=== PATIENT | female | born 1990 | race Caucasian/White ===

== ENCOUNTER 2017-06-28 19:51 | Inpatient (IN) ==
[2017-06-28 20:19] LABS: Basophils % 0.2 %; Eosinophils # 0.1 K/mcL (0.0-0.6); Hematocrit 38.8 % (35.3-44.9); Hemoglobin 12.6 g/dL (11.5-15.4); Immature Granulocytes % 0.3 % (0-4); Lymphocytes # 1.7 K/mcL (0.6-4.6); Lymphocytes % 18.2 %; Mean Corpuscular HGB Conc 32.5 g/dL (31.6-35.5); Mean Corpuscular Hemoglobin 29.6 pg (28.0-33.3); Mean Corpuscular Volume 91.3 fL (83.0-100.0); Mean Platelet Volume 9.4 fL (9.4-12.4); Monocytes # 0.5 K/mcL (0.0-1.3); Monocytes % 5.3 %; Neutrophils # 7.1 K/mcL (1.6-8.9); Platelet Count 197 K/mcL (140-400); Red Blood Count 4.25 M/mcL (3.82-4.97); Red Cell Distribution Width 13.9 % (11.5-14.5)
--- NOTE | 2017-06-28 20:19 | Emergency Department Note ---
Disposition Clinical Impression: Suicidal ideation Depression Qualifiers: Depression Type: major depressive disorder Major depression recurrence: recurrent Active/Remission status: currently active Major depression episode severity: moderate Qualified Code(s): F33.1 - Major depressive disorder, recurrent, moderate Disposition: Admitted As Inpatient Condition: Good Referrals: NONE,PCP [Primary Care Provider] - Forms: ED Satisfaction Letter Time of Disposition: 22:19 General Adult HPI - General Chief complaint: ED Psychiatric Symptoms Stated complaint: suicidal ideations Time Seen by Provider: 06/28/17 19:54 Source: patient, EMS Limitations: no limitations Nursing Notes Reviewed: Yes Vital Signs Reviewed: Yes - History of Present Illness HPI Narrative: History of present illness: 27-year-old female by EMS for suicidal ideations and depression. Patient was just admitted to mental health facility in [place] last month she says for suicidal ideation so A things are different in that for the past day or 2 she has been hearing voices those voices commanding her to kill herself though thisplan. Patient denies any drugs or alcohol any L context of recent travel. There has been no inciting or precipitating event. Patient offers no other complaints at this time. Offers no painful complaints Pain Scale: 0 - Related Data Home Medications Medication Instructions Recorded Confirmed Levothyroxine [Synthroid] 125 mcg PO DAILY 10/29/15 05/26/17 Loratadine [Allergy Relief] 10 mg PO DAILY 05/26/17 05/26/17 Norelgestromin/Ethin.estradiol 1 patch TD QWEEK 05/26/17 05/26/17 [Xulane Patch] Pantoprazole Sodium 20 mg PO BID 05/26/17 05/26/17 Prazosin [Minipress] 1 mg PO HS 05/26/17 05/26/17 Sertraline [Zoloft] 100 mg PO DAILY 05/26/17 05/26/17 Allergies Allergy/AdvReac Type Severity Reaction Status Date / Time No Known Allergies Allergy Verified 05/26/17 16:29 All systems ED: reviewed and negative except as stated. Psychiatric: Reports: depression, suicidal thoughts Past Medical History - Past Medical History Attestation: Yes The following information was validated with the patient. 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 - Social History Smoking Status: Never smoker Smokeless Tobacco Status: No Alcohol use: Reports: none Drug use: Reports: none Physical Exam - General Limitations: no limitations General appearance: alert, in no apparent distress - Head Head exam: atraumatic - Eye Eye exam: Present: normal appearance - ENT ENT exam: normal exam, normal oropharynx - Neck Neck exam: Present: normal inspection, full ROM - Chest Chest inspection: Present: normal inspection, symmetric chest wall rise - Respiratory Respiratory exam: Present: normal lung sounds bilaterally - Cardiovascular Cardiovascular exam: Present: regular rate, normal rhythm - Abdominal Exam Abdominal exam: Present: soft, Non-Tender - Extremities Exam Extremities exam: Present: normal inspection, full ROM - Expanded Lower Extremity Exam Neurovascular/Tendon exam: Present: normal capillary refill Gait: observed and normal - Back Exam Back exam: Present: normal inspection, full ROM - Neurological Exam Neurological exam: Present: alert, oriented X3, CN II-XII intact - Psychiatric Psychiatric exam: Present: depressed, flat affect - Skin Skin exam: Present: warm, dry, intact Course - Reevaluation(s) Reevaluation #1: Physical examination is benign. Patient will be medically cleared and evaluated by mental health services. [place] slip has been completed and is on chart. Disposition pending Time: 20:18 Reevaluation #2: The workup and completion of laboratory studies within normal limits patient is medically cleared. Mental health services will be consult for disposition pending. Time: 20:48 Reevaluation #3: Patient was evaluated by mental health service incision was made to admit the patient for inpatient treatment. Admission orders placed. Patient going to the mental health unit. Time: 22:18 Vital Signs Temperature 98.3 F 06/28/17 20:00 Pulse Rate 164 06/28/17 20:00 Respiratory Rate 18 06/28/17 20:00 Blood Pressure 159/79 06/28/17 20:00 O2 Sat by Pulse Oximetry 95 06/28/17 20:00 Temperature 98.3 F 06/28/17 20:00 Pulse Rate 88 06/28/17 21:08 Respiratory Rate 18 06/28/17 20:00 Blood Pressure 159/79 06/28/17 20:00 O2 Sat by Pulse Oximetry 97 06/28/17 21:08 Oxygen Delivery Oxygen Delivery Room Air Medical Decision Making - Lab Data Result diagrams: 06/28/17 20:11 06/28/17 21:10 Lab Results 06/28/17 06/28/17 06/28/17 Range/Units 20:11 20:11 20:11 WBC 9.4 (4.3-11.1) K/mcL RBC 4.25 (3.82-4.97) M/mcL Hgb 12.6 (11.5-15.4) g/dL Hct 38.8 (35.3-44.9) % MCV 91.3 (83.0-100.0) fL MCH 29.6 (28.0-33.3) pg MCHC 32.5 (31.6-35.5) g/dL RDW 13.9 (11.5-14.5) % Plt Count 197 (140-400) K/mcL MPV 9.4 (9.4-12.4) fL Immature Gran % 0.3 (0-4) % Seg Neutrophils % 75.0 % Lymphocytes % 18.2 % Monocytes % 5.3 % Eosinophils % 1.0 % Basophils % 0.2 % Neutrophils # 7.1 (1.6-8.9) K/mcL Lymphocytes # 1.7 (0.6-4.6) K/mcL Monocytes # 0.5 (0.0-1.3) K/mcL Eosinophils # 0.1 (0.0-0.6) K/mcL Basophils # 0.0 (0.0-0.2) K/mcL Sodium Cancelled Potassium Cancelled Chloride Cancelled Carbon Dioxide Cancelled BUN Cancelled Creatinine Cancelled Est GFR ( Amer) Cancelled Est GFR (Non-Af Amer) Cancelled BUN/Creatinine Ratio Cancelled Glucose Cancelled Calculated Osmolality Cancelled Calcium Cancelled Urine Color (Yellow) Urine Clarity (Clear) Urine pH (5.0-8.0) pH Units Ur Specific Hallie (1.010-1.025) Urine Protein (Neg-Trace) mg/dL Urine Glucose (UA) (Normal) mg/dL Urine Ketones (Negative) mg/dL Urine Blood (Negative) Urine Nitrite (Negative) Urine Bilirubin (Negative) Urine Urobilinogen (Normal) mg/dL Ur Leukocyte Esterase (Negative) Urine Microscopic RBC (0-3) per hpf Urine Microscopic WBC (0-3) per hpf Ur Squamous Epith Cells (None-Few) per lpf Urine Bacteria (None-Few) per hpf Hyaline Casts (None-Few) per lpf Urine Test (Negative) Salicylates < 5.0 L (15.0-30.0) mg/dL Urine Opiates Screen (Tvtnad=801) ng/mL Acetaminophen < 1.0 L (10-30) mcg/mL Ur Barbiturates Screen (Uynlqy=449) ng/mL Ur Phencyclidine Scrn (Cutoff=25) ng/mL Ur Amphetamines Screen (Jyjnqe=8398) ng/mL U Benzodiazepines Scrn (Gcuaqm=085) ng/mL Urine Cocaine Screen (Cutoff= 300) ng/mL U Marijuana (THC) Screen (Cutoff = 50) ng/mL Ethyl Alcohol < 10 (0-10) mg/dL Specimen Rejected Hemolyzed 06/28/17 06/28/17 06/28/17 Range/Units 20:16 20:16 20:20 WBC (4.3-11.1) K/mcL RBC (3.82-4.97) M/mcL Hgb (11.5-15.4) g/dL Hct (35.3-44.9) % MCV (83.0-100.0) fL MCH (28.0-33.3) pg MCHC (31.6-35.5) g/dL RDW (11.5-14.5) % Plt Count (140-400) K/mcL MPV (9.4-12.4) fL Immature Gran % (0-4) % Seg Neutrophils % % Lymphocytes % % Monocytes % % Eosinophils % % Basophils % % Neutrophils # (1.6-8.9) K/mcL Lymphocytes # (0.6-4.6) K/mcL Monocytes # (0.0-1.3) K/mcL Eosinophils # (0.0-0.6) K/mcL Basophils # (0.0-0.2) K/mcL Sodium Potassium Chloride Carbon Dioxide BUN Creatinine Est GFR ( Amer) Est GFR (Non-Af Amer) BUN/Creatinine Ratio Glucose Calculated Osmolality Calcium Urine Color Yellow (Yellow) Urine Clarity Cloudy A (Clear) Urine pH 7.0 (5.0-8.0) pH Units Ur Specific Hallie 1.010 (1.010-1.025) Urine Protein Negative (Neg-Trace) mg/dL Urine Glucose (UA) Normal (Normal) mg/dL Urine Ketones Negative (Negative) mg/dL Urine Blood Negative (Negative) Urine Nitrite Negative (Negative) Urine Bilirubin Negative (Negative) Urine Urobilinogen Normal (Normal) mg/dL Ur Leukocyte Esterase Small H (Negative) Urine Microscopic RBC 0-3 (0-3) per hpf Urine Microscopic WBC 5-15 H (0-3) per hpf Ur Squamous Epith Cells Many H (None-Few) per lpf Urine Bacteria Moderate H (None-Few) per hpf Hyaline Casts None Seen (None-Few) per lpf Urine Test Negative (Negative) Salicylates (15.0-30.0) mg/dL Urine Opiates Screen Negative (Fxqrix=610) ng/mL Acetaminophen (10-30) mcg/mL Ur Barbiturates Screen Negative (Suopdf=408) ng/mL Ur Phencyclidine Scrn Negative (Cutoff=25) ng/mL Ur Amphetamines Screen Negative (Afuawt=6518) ng/mL U Benzodiazepines Scrn Negative (Gllzdg=327) ng/mL Urine Cocaine Screen Negative (Cutoff= 300) ng/mL U Marijuana (THC) Screen Negative (Cutoff = 50) ng/mL Ethyl Alcohol (0-10) mg/dL Specimen Rejected 06/28/17 Range/Units 21:10 WBC (4.3-11.1) K/mcL RBC (3.82-4.97) M/mcL Hgb (11.5-15.4) g/dL Hct (35.3-44.9) % MCV (83.0-100.0) fL MCH (28.0-33.3) pg MCHC (31.6-35.5) g/dL RDW (11.5-14.5) % Plt Count (140-400) K/mcL MPV (9.4-12.4) fL Immature Gran % (0-4) % Seg Neutrophils % % Lymphocytes % % Monocytes % % Eosinophils % % Basophils % % Neutrophils # (1.6-8.9) K/mcL Lymphocytes # (0.6-4.6) K/mcL Monocytes # (0.0-1.3) K/mcL Eosinophils # (0.0-0.6) K/mcL Basophils # (0.0-0.2) K/mcL Sodium 136 Potassium 4.0 Chloride 104 Carbon Dioxide 25 BUN 9 Creatinine 0.87 Est GFR ( Amer) > 60 Est GFR (Non-Af Amer) > 60 BUN/Creatinine Ratio 10 Glucose 137 H Calculated Osmolality 283 Calcium 9.1 Urine Color (Yellow) Urine Clarity (Clear) Urine pH (5.0-8.0) pH Units Ur Specific Hallie (1.010-1.025) Urine Protein (Neg-Trace) mg/dL Urine Glucose (UA) (Normal) mg/dL Urine Ketones (Negative) mg/dL Urine Blood (Negative) Urine Nitrite (Negative) Urine Bilirubin (Negative) Urine Urobilinogen (Normal) mg/dL Ur Leukocyte Esterase (Negative) Urine Microscopic RBC (0-3) per hpf Urine Microscopic WBC (0-3) per hpf Ur Squamous Epith Cells (None-Few) per lpf Urine Bacteria (None-Few) per hpf Hyaline Casts (None-Few) per lpf Urine Test (Negative) Salicylates (15.0-30.0) mg/dL Urine Opiates Screen (Vdoqot=731) ng/mL Acetaminophen (10-30) mcg/mL Ur Barbiturates Screen (Nqaeuj=204) ng/mL Ur Phencyclidine Scrn (Cutoff=25) ng/mL Ur Amphetamines Screen (Asvxjl=3390) ng/mL U Benzodiazepines Scrn (Femrqn=645) ng/mL Urine Cocaine Screen (Cutoff= 300) ng/mL U Marijuana (THC) Screen (Cutoff = 50) ng/mL Ethyl Alcohol (0-10) mg/dL Specimen Rejected
[2017-06-28 20:26] LABS: Bilirubin,Urine Negative (Negative); Blood,Urine Negative (Negative); Clarity,Urine Cloudy (Clear); Color,Urine Yellow (Yellow); Glucose,Urine (UA) Normal (Normal); Ketones,Urine Negative (Negative); Leukocyte Esterase,Urine Small (Negative); Nitrite,Urine Negative (Negative); Protein,Urine Negative (Neg-Trace); Urobilinogen,Urine Normal (Normal)
[2017-06-28 20:28] LABS: Bacteria,Urine Moderate per hpf (None-Few); Hyaline Casts,Urine None Seen per lpf (None-Few); Squamous Epithelial Cell,Urine Many per lpf (None-Few)
[2017-06-28 20:32] LABS: Amphetamine Screen,Urine Negative ng/mL (Cutoff=1000); Barbiturate Screen,Urine Negative ng/mL (Cutoff=200); Benzodiazepines Screen,Urine Negative ng/mL (Cutoff=200); Cannabinoid Screen,Urine Negative ng/mL (Cutoff = 50); Cocaine Screen,Urine Negative ng/mL (Cutoff= 300); Opiate Screen,Urine Negative ng/mL (Cutoff=300); Phencyclidine Screen,Urine Negative ng/mL (Cutoff=25)
[2017-06-28 20:38] LABS: Acetaminophen < 1.0 mcg/mL (10-30); Ethanol < 10 mg/dL (0-10); Salicylate < 5.0 mg/dL (15.0-30.0)
[2017-06-28 20:38] LABS: RBC,Urine 0-3 per hpf (0-3)
[2017-06-28 21:31] LABS: BUN/Creatinine Ratio 10 (6-26); Blood Urea Nitrogen 9 mg/dL (6-20); Calcium 9.1 mg/dL (8.6-10.3); Carbon Dioxide 25 mEq/L (23-29); Chloride 104 mEq/L (98-107); Glucose 137 mg/dL (70-105); Osmolality,Calculated 283 (280-300); Sodium 136 mEq/L (136-145); eGFR For African Americans > 60 (> 60); eGFR For Non-African Americans > 60 (> 60)
[2017-06-28] MEDS ORDERED: hydrOXYzine pamoate 25 MG CAPSULE PO PRN (22:31)
[2017-06-28] MEDS ORDERED: Mag Hydrox/Al Hydrox/Simeth 30 ML UDC PO PRN (22:31)
[2017-06-28] MEDS ORDERED: *HR* LORazepam 1 MG TABLET PO PRN (22:31)
[2017-06-28] MEDS ORDERED: Haloperidol Lactate 5 MG/ML VIAL IM PRN (22:31)
[2017-06-28] MEDS ORDERED: traZODone 50 MG TABLET PO PRN (22:31)
[2017-06-28] MEDS ORDERED: Acetaminophen 325 MG TABLET PO PRN (22:31)
[2017-06-28] MEDS ORDERED: *HR* LORazepam 2 MG/ML VIAL IM PRN (22:31)
[2017-06-28] MEDS ORDERED: MOM Conc 10 ML UD.LIQ PO PRN (22:31)
--- NOTE | 2017-06-29 10:43 | Psychiatry History & Physical ---
Date of Encounter: 06/29/17 Time of Encounter: 10:37 History of Present Illness Patient Stated Chief Complaint: suicidal ideation Medicare Admission Attestation: For traditional Medicare patients the provided hospital inpatient services are reasonable and necessary and in the case of services not specified as inpatient -only under 42 CFR 419.22 (n), that they are appropriately provided as inpatient services in accordance 42 CFR 412.3. For Critical Access Hospital the patient may reasonably be expected to be discharged or transferred to a hospital within 96 hours after admission to the Critical Access Hospital. Admitted From: Home Plans for Post Hospital Care: Home History of Present Illness: Ms. Chavarria is a 27 year old female who presented to the ER endorsing SI and AH. Lives with family and they told her she needed to go to the hospital and get her "head right." Client is cognitively very limited. Seems happy to be here. No outward signs of depression. She is linked with services. Already prescribed an antidepressant but staff are waiting to verify all of her meds and doses with her pharmacy. No evidence of psychosis on exam. No substance abuse issues. Physically client states she has HTN and AMOS. Obese. Limited self care. Presentation seems far more related to developmental delays than a primary mood or thought disorder. Home life is likely chaotic as client states there are multiple people in the house. Client is likely reacting to stress of living environment more than anything. Doubt client needs changes in medications. More likely needs a structured environment and groups to help address social skills and coping strategies. Past Med Surg Social Fam HX - Past Medical History Medical history: GERD, hypertension, thyroid disease, other - Past Psychiatric History Psychiatric history: Reports: depression, previous psychiatric hospitalization Family psychiatric history: Unknown Family History of Suicide: Unknown - Social History Smoking Status: Never smoker Smokeless Tobacco Status: No Alcohol use: none Drug use: none Medications & Allergies Levothyroxine [Synthroid] 125 mcg PO DAILY 10/29/15 [History] Loratadine [Allergy Relief] 10 mg PO DAILY 05/26/17 [History] Norelgestromin/Ethin.estradiol [Xulane Patch] 1 patch TD QWEEK 05/26/17 [History ] Pantoprazole Sodium 20 mg PO BID 05/26/17 [History] Prazosin [Minipress] 1 mg PO HS 05/26/17 [History] Sertraline [Zoloft] 150 mg PO DAILY 05/26/17 [History] hydrOXYzine HCl 25 mg PO TID PRN 06/28/17 [History] 3 Allergy/AdvReac Type Severity Reaction Status Date / Time No Known Allergies Allergy Verified 05/26/17 16:29 Review of Systems Constitutional: Denies: fever, chills, weakness, weight change Eyes: Denies: eye pain, vision change Ears, Nose, Throat: Denies: ear pain, throat pain, dental pain, hearing loss, congestion Cardiovascular: Denies: chest pain, palpitations, dyspnea on exertion Respiratory: Denies: cough, dyspnea, wheezes Gastrointestinal: Denies: abdominal pain, nausea, vomiting, diarrhea, constipation Genitourinary male: Denies: urgency, dysuria, frequency, genital lesions Genitourinary female: Denies: urgency, dysuria, frequency, abnormal menses, dyspareunia Musculoskeletal: Denies: joint swelling, joint pain Integumentary: Denies: rash, lesions, pruritus Neurological: Denies: headache, weakness, numbness, memory loss Endocrine: Denies: fatigue, heat or cold intolerance Hematologic/Lymphatic: Denies: easy bruising, lymphadenopathy Allergic/Immunologic: Denies: urticaria, itchy eyes Mental Status Exam Patient orientation: Yes Person, Yes Time, Yes Place Level of alertness: Alert Patient appearance: Unkempt, Disheveled Behavior: calm, cooperative Psychomotor activity: Normal Eye contact: Maintains Eye Contact Mood description: Depressed Affect description: incongruent with mood Speech pattern: Limited Speech volume: Normal Thought process: Linear Thought content: Yes Suicidal ideation, No Homicidal ideation, No Overt delusions Perceptual disturbances: Yes Auditory hallucinations Attention span: Capable of Focused Attention Memory description: Grossly Intact Patient reliability: Reliable Historian Intelligence estimate: Below Average Judgment: Limited Insight: Partial Exam - HEENT Head exam IM: Present: atraumatic Eye exam IM: Present: EOMI - Neurological Neurological exam IM: Present: alert, oriented X3 - Respiratory Respiratory exam IM: Present: CTAB - GI/Abdominal GI/Abdominal exam IM: Present: normal bowel sounds - Extremities Extremities exam IM: Present: full ROM - Skin Skin exam IM: Present: normal color Results - Vital Signs Vital signs: Temp Pulse Resp BP Pulse Ox 98.4 F 81 18 130/79 97 06/29/17 09:20 06/29/17 09:20 06/29/17 09:20 06/29/17 09:20 06/28/17 21:08 - Labs Labs: Laboratory Last Values WBC 9.4 K/mcL (4.3-11.1) 06/28/17 20:11 RBC 4.25 M/mcL (3.82-4.97) 06/28/17 20:11 Hgb 12.6 g/dL (11.5-15.4) 06/28/17 20:11 Hct 38.8 % (35.3-44.9) 06/28/17 20:11 MCV 91.3 fL (83.0-100.0) 06/28/17 20:11 MCH 29.6 pg (28.0-33.3) 06/28/17 20:11 MCHC 32.5 g/dL (31.6-35.5) 06/28/17 20:11 RDW 13.9 % (11.5-14.5) 06/28/17 20:11 Plt Count 197 K/mcL (140-400) 06/28/17 20:11 MPV 9.4 fL (9.4-12.4) 06/28/17 20:11 Immature Gran % 0.3 % (0-4) 06/28/17 20:11 Seg Neutrophils % 75.0 % 06/28/17 20:11 Lymphocytes % 18.2 % 06/28/17 20:11 Monocytes % 5.3 % 06/28/17 20:11 Eosinophils % 1.0 % 06/28/17 20:11 Basophils % 0.2 % 06/28/17 20:11 Neutrophils # 7.1 K/mcL (1.6-8.9) 06/28/17 20:11 Lymphocytes # 1.7 K/mcL (0.6-4.6) 06/28/17 20:11 Monocytes # 0.5 K/mcL (0.0-1.3) 06/28/17 20:11 Eosinophils # 0.1 K/mcL (0.0-0.6) 06/28/17 20:11 Basophils # 0.0 K/mcL (0.0-0.2) 06/28/17 20:11 Sodium 136 mEq/L (136-145) 06/28/17 21:10 Potassium 4.0 mEq/L (3.5-5.1) 06/28/17 21:10 Chloride 104 mEq/L (98-107) 06/28/17 21:10 Carbon Dioxide 25 mEq/L (23-29) 06/28/17 21:10 BUN 9 mg/dL (6-20) 06/28/17 21:10 Creatinine 0.87 mg/dL (0.60-1.20) 06/28/17 21:10 Est GFR ( Amer) > 60 (> 60) 06/28/17 21:10 Est GFR (Non-Af Amer) > 60 (> 60) 06/28/17 21:10 BUN/Creatinine Ratio 10 (6-26) 06/28/17 21:10 Glucose 137 mg/dL (70-105) H 06/28/17 21:10 Calculated Osmolality 283 (280-300) 06/28/17 21:10 Calcium 9.1 mg/dL (8.6-10.3) 06/28/17 21:10 Urine Color Yellow (Yellow) 06/28/17 20:20 Urine Clarity Cloudy (Clear) A 06/28/17 20:20 Urine pH 7.0 pH Units (5.0-8.0) 06/28/17 20:20 Ur Specific Happy 1.010 (1.010-1.025) 06/28/17 20:20 Urine Protein Negative mg/dL (Neg-Trace) 06/28/17 20:20 Urine Glucose (UA) Normal mg/dL (Normal) 06/28/17 20:20 Urine Ketones Negative mg/dL (Negative) 06/28/17 20:20 Urine Blood Negative (Negative) 06/28/17 20:20 Urine Nitrite Negative (Negative) 06/28/17 20:20 Urine Bilirubin Negative (Negative) 06/28/17 20:20 Urine Urobilinogen Normal mg/dL (Normal) 06/28/17 20:20 Ur Leukocyte Esterase Small (Negative) H 06/28/17 20:20 Urine Microscopic RBC 0-3 per hpf (0-3) 06/28/17 20:20 Urine Microscopic WBC 5-15 per hpf (0-3) H 06/28/17 20:20 Ur Squamous Epith Cells Many per lpf (None-Few) H 06/28/17 20:20 Urine Bacteria Moderate per hpf (None-Few) H 06/28/17 20:20 Hyaline Casts None Seen per lpf (None-Few) 06/28/17 20:20 Urine Test Negative (Negative) 06/28/17 20:16 Salicylates < 5.0 mg/dL (15.0-30.0) L 06/28/17 20:11 Urine Opiates Screen Negative ng/mL (Ygshmb=936) 06/28/17 20:16 Acetaminophen < 1.0 mcg/mL (10-30) L 06/28/17 20:11 Ur Barbiturates Screen Negative ng/mL (Mxsjux=115) 06/28/17 20:16 Ur Phencyclidine Scrn Negative ng/mL (Cutoff=25) 06/28/17 20:16 Ur Amphetamines Screen Negative ng/mL (Wgyqyr=2379) 06/28/17 20:16 U Benzodiazepines Scrn Negative ng/mL (Tbjavl=828) 06/28/17 20:16 Urine Cocaine Screen Negative ng/mL (Cutoff= 300) 06/28/17 20:16 U Marijuana (THC) Screen Negative ng/mL (Cutoff = 50) 06/28/17 20:16 Ethyl Alcohol < 10 mg/dL (0-10) 06/28/17 20:11 Specimen Rejected Hemolyzed 06/28/17 20:11 Assessment and Plan (1) Major depression, recurrent Current visit: Yes Status: Acute Plan: Admit inpatient for safety and stabilization, Close observation, Suicide Precautions per unit protocol, Encourage participation in unit milieu, Group Therapy, Monitor sleep, Monitor appetite Risks, benefits, side effects, alternatives discussed w/pt: Yes Patient agreeable to treatment: Yes Plans for Post Hospital Care: Home Estimated Length of Stay (Days): 4 Qualifiers: Active/Remission status: currently active Major depression episode severity : moderate Qualified Code(s): F33.1 - Major depressive disorder, recurrent, moderate (2) Depression Current visit: Yes Status: Acute Qualifiers: Depression Type: major depressive disorder Major depression recurrence: recurrent Active/Remission status: currently active Major depression episode severity: moderate Qualified Code(s): F33.1 - Major depressive disorder, recurrent, moderate
[2017-06-29] MEDS ORDERED: ETHINYL ESTRADIOL TP SCH (12:15)
[2017-06-29] MEDS ORDERED: NORELGESTROMIN TP SCH (12:15)
[2017-06-29] MEDS ORDERED: Ondansetron ODT 4 MG TAB.RAPDIS SL PRN (12:55)
[2017-06-29] MEDS: Loratadine 10 MG TABLET PO SCH (14:26)
[2017-06-29] MEDS: Cholecalciferol (D-3) 1,000 UNIT TABLET PO SCH (14:27)
[2017-06-29] MEDS: Nystatin Cream 15 GM TUBE TP SCH ×2 (14:53→23:12)
[2017-06-29] MEDS: hydrOXYzine pamoate 25 MG CAPSULE PO SCH ×2 (14:53→20:31)
[2017-06-29] MEDS ORDERED: Nystatin Cream 15 GM TUBE TP PRN (23:17)
[2017-06-30] MEDS ORDERED: Cholecalciferol (D-3) 1,000 UNIT TABLET PO SCH (09:00)
[2017-06-30] MEDS ORDERED: Loratadine 10 MG TABLET PO SCH (09:00)
[2017-06-30] MEDS: hydrOXYzine pamoate 25 MG CAPSULE PO SCH ×3 (09:08→21:20)
[2017-06-30] MEDS: Loratadine 10 MG TABLET PO SCH (09:09)
[2017-06-30] MEDS: Cholecalciferol (D-3) 1,000 UNIT TABLET PO SCH (09:09)
--- NOTE | 2017-06-30 15:03 | Psychiatry Progress Note ---
Date of Encounter: 06/30/17 Time of Encounter: 14:55 Subjective Interval history: Client entered room and immediately said "I'm not ready to go today. I just want to put that out there." Seems to be enjoying hospital stay. Family life is chaotic and client seems to be treating hospitalization as a respite from her home life. Seems happy to be here. Denying SI today. No evidence of a thought disorder although client does endorse AH on occasion. Social. Attending groups. May need a nudge to leave hospital. Staff spoke with family and they are ok with her returning home. They say client has a habit of acting out when she does not get her way. They are hoping this hospitalization fixes that behavior. Staff discussed with them how this is not a realistic expectation and encouraged ongoing therapy. Client stating she wants to remain in the hospital until Thursday. Discussed how she is doing well and that the intensity of inpatient services is not necessary for that long. Discussed goal of discharge so she can continue to work on coping skills and family dynamics. Review of Systems Constitutional: Denies: fever, chills, weakness, weight change Eyes: Denies: eye pain, vision change Ears, Nose, Throat: Denies: ear pain, throat pain, dental pain, hearing loss, congestion Cardiovascular: Denies: chest pain, palpitations, dyspnea on exertion Respiratory: Denies: cough, dyspnea, wheezes Gastrointestinal: Denies: abdominal pain, nausea, vomiting, diarrhea, constipation Musculoskeletal: Denies: joint swelling, joint pain Neurological: Denies: headache, weakness, numbness, memory loss Objective: Exam Patient orientation: Yes Person, Yes Time, Yes Place Level of alertness: Alert Patient appearance: Disheveled, Malodorous Behavior: calm, cooperative Psychomotor activity: Normal Eye contact: Maintains Eye Contact Mood description: Euthymic/stable Affect description: congruent with mood, full range Speech pattern: Normal rate, Normal rhythm, Normal tone Speech volume: Normal Thought process: Goal Oriented Thought content: No Suicidal ideation, No Homicidal ideation, No Overt delusions Perceptual disturbances: No Reacting to internal stimuli, Yes Auditory hallucinations Judgment: Fair Insight: Partial Results - Vital Signs Vital Signs: Temp Pulse Resp BP Pulse Ox 97.6 F 79 22 131/80 97 06/30/17 09:00 06/30/17 09:00 06/30/17 09:00 06/30/17 09:00 06/28/17 21:08 Assessment and Plan (1) Major depression, recurrent Current visit: Yes Status: Acute Plan: Continue hospitalization, Close observation, Suicide Precautions per unit protocol, Encourage participation in unit milieu, Group Therapy, Monitor sleep, Monitor appetite Risks, benefits, side effects, alternatives discussed w/pt: Yes Patient agreeable to treatment: Yes Qualifiers: Active/Remission status: currently active Major depression episode severity : moderate Qualified Code(s): F33.1 - Major depressive disorder, recurrent, moderate Consult Discharge Plan - Plan Referrals: [facility] [Outside] - 07/07/17 1:00 pm (The above appointment is with [facility] for outpatient mental health counseling services. You will also see Allison Miles for outpatient psychiatric assessment and medication management services on 07/28/2017 at 2:30 PM.)
[2017-07-01] MEDS ORDERED: MOM Conc 10 ML UD.LIQ PO PRN (00:54)
[2017-07-01] MEDS ORDERED: *HR* LORazepam 1 MG TABLET PO PRN (00:54)
[2017-07-01] MEDS ORDERED: Mag Hydrox/Al Hydrox/Simeth 30 ML UDC PO PRN (00:54)
[2017-07-01] MEDS ORDERED: hydrOXYzine pamoate 25 MG CAPSULE PO PRN (00:54)
[2017-07-01] MEDS ORDERED: Haloperidol Lactate 5 MG/ML VIAL IM PRN (00:54)
[2017-07-01] MEDS ORDERED: *HR* LORazepam 2 MG/ML VIAL IM PRN (00:54)
[2017-07-01] MEDS: Loratadine 10 MG TABLET PO SCH (08:19)
[2017-07-01] MEDS: hydrOXYzine pamoate 25 MG CAPSULE PO SCH (08:19)
[2017-07-01] MEDS: Cholecalciferol (D-3) 1,000 UNIT TABLET PO SCH (08:20)
[2017-07-01 09:13] VITALS: BP 129/76
--- NOTE | 2017-07-01 12:39 | Discharge Summary ---
Date of Encounter: 07/01/17 Time of Encounter: 12:36 Diagnosis - Discharge Diagnosis (1) Major depression, recurrent Status: Acute Qualifiers: Active/Remission status: currently active Major depression episode severity : moderate Qualified Code(s): F33.1 - Major depressive disorder, recurrent, moderate Medications - Discharge Medications Prescriptions: Cholecalciferol (D-3) [Vitamin D] 1,000 unit PO DAILY #14 tablet Levothyroxine [Synthroid] 125 mcg PO QAM 10/29/15 [History] Loratadine [Allergy Relief] 10 mg PO DAILY 05/26/17 [History] Norelgestromin/Ethin.estradiol [Xulane Patch] 1 patch TD QWEEK 05/26/17 [History ] Pantoprazole Sodium 20 mg PO BID 05/26/17 [History] Prazosin [Minipress] 1 mg PO HS 05/26/17 [History] Sertraline [Zoloft] 150 mg PO DAILY 05/26/17 [History] hydrOXYzine HCl [Hydroxyzine HCl] 25 mg PO TID PRN 06/28/17 [History] Ondansetron ODT [Zofran ODT] 4 mg PO TID PRN 06/29/17 [History] Cholecalciferol (D-3) [Vitamin D] 1,000 unit PO DAILY #14 tablet 07/01/17 [Rx] Nystatin Cream [Mycostatin Cream] 1 appl TP TID PRN tube 07/01/17 [Rx] 3 Allergy/AdvReac Type Severity Reaction Status Date / Time No Known Allergies Allergy Verified 05/26/17 16:29 Provider Date of admission: 06/28/17 22:26 Primary care physician: PCP NONE Consults: 06/29/17 00:28 Consult to Respiratory Therapy [CONS] Routine Reason for Consult: pt usually wears a bipap Call Completed: No Discharging clinician: Dafne Chadwick Assessment and Plan - Patient/Caregiver Discharge Instructions Activity: resume usual activities as tolerated Diet: regular diet - Follow up Plan Follow up with: [facility] [Outside] - 07/07/17 1:00 pm (The above appointment is with [facility] for outpatient mental health counseling services. You will also see Allison Miles for outpatient psychiatric assessment and medication management services on 07/28/2017 at 2:30 PM.) Functional capacity at discharge: independent ambulation Overall status at discharge: Stable Disposition: Home, Self-Care Hospital Course Hospital course: Ms. Chavarria is a 27 year old female who was admitted secondary to SI. Client had been having conflicts with her father and acting out at home. However, in the hospital she was happy, outgoing, and fully engaged with her peers and providers. Denied SI the day following admission and continues to deny SI. Knows she has to work on her relationships with family. Already linked with services. Has a therapy appointment on Thursday. Meds unchanged. Family denied having safety concerns and were willing to have client return home. - Time Spent with Patient Total time spent providing and/or coordinating discharge services: Quality - Multiple Antipsychotics Patient discharged on 2 or more antipsychotic medications: No Procedures - Procedures Procedures: Medication Management, Crisis Stabilization, Supportive Therapy, Group Therapy Mental Status Exam - Mental Status Exam Patient orientation: Yes Person, Yes Time, Yes Place Level of alertness: Alert Patient appearance: Disheveled, Malodorous Behavior: calm, cooperative Psychomotor activity: Normal Eye contact: Maintains Eye Contact Mood description: Euthymic/stable Affect description: congruent with mood, full range Speech pattern: Normal rate, Normal rhythm, Normal tone Speech Volume: Normal Thought process: Linear, Goal Oriented Thought Content: No Suicidal ideation, No Homicidal ideation, No Overt delusions Perceptual Disturbances: No Reacting to internal stimuli, Yes Auditory hallucinations, No Visual hallucinations Judgment: Fair Insight: Partial
[2017-07-01] MEDS ORDERED: BuPROPion SR (12 HR) 100 MG TABLET PO SCH (21:00)
[2017-07-01] MEDS ORDERED: Ziprasidone 20 MG CAPSULE PO SCH (21:00)
== END 2017-07-01 13:21 | disposition home or self-care (01) | DRG 751 ==
LOC: EMEROO 19:51 → 1ANU 22:26
PROVIDERS: ADMIT Psychiatry & Neurology Psychiatry; ATTEND Psychiatry & Neurology Psychiatry

== ENCOUNTER 2017-10-16 12:01 | Inpatient (IN) ==
--- NOTE | 2017-10-16 12:07 | Emergency Department Note ---
Disposition Clinical Impression: Suicidal ideation, Medical clearance for psychiatric admission Disposition: Admitted As Inpatient Condition: Undetermined General Adult HPI - General Chief complaint: ED Psychiatric Symptoms Stated complaint: SI/depression/hallucinations Time Seen by Provider: 10/16/17 12:03 - Related Data Home Medications Medication Instructions Recorded Confirmed Levothyroxine [Synthroid] 125 mcg PO QAM 10/29/15 10/16/17 Loratadine [Allergy Relief] 10 mg PO DAILY 05/26/17 10/16/17 Norelgestromin/Ethin.estradiol 1 patch TD QWEEK 05/26/17 10/16/17 [Xulane Patch] Pantoprazole Sodium 40 mg PO DAILY 05/26/17 10/16/17 Prazosin [Minipress] 1 mg PO HS 05/26/17 10/16/17 Sertraline [Zoloft] 150 mg PO DAILY 05/26/17 10/16/17 hydrOXYzine HCl [Hydroxyzine HCl] 25 mg PO TID PRN 06/28/17 10/16/17 Loxapine Succinate [Loxapine] 10 mg PO HS 10/16/17 10/16/17 Previous Rx's Medication Instructions Recorded Cholecalciferol (D-3) [Vitamin D] 1,000 unit PO DAILY #14 tablet 07/01/17 Allergies Allergy/AdvReac Type Severity Reaction Status Date / Time No Known Allergies Allergy Verified 10/16/17 12:08 Past Medical History - Past Medical History Medical history: Reports: GERD, hypertension, thyroid disease, other Surgical history: Reports: cholecystectomy Psychiatric history: Reports: depression, previous psychiatric hospitalization CRUSHER SETTER 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 CRUSHER SETTER history - Social History Smoking Status: Never smoker Smokeless Tobacco Status: No Alcohol use: Reports: none Drug use: Reports: none Course Vital Signs Temperature 98.3 F 10/16/17 12:09 Pulse Rate 97 10/16/17 12:09 Respiratory Rate 20 10/16/17 12:09 Blood Pressure 116/76 10/16/17 12:09 O2 Sat by Pulse Oximetry 96 10/16/17 12:09 Temperature 98.2 F 10/16/17 15:52 Pulse Rate 99 10/16/17 15:52 Respiratory Rate 28 10/16/17 15:52 Blood Pressure 135/80 10/16/17 15:52 O2 Sat by Pulse Oximetry 96 10/16/17 12:09 Oxygen Delivery Oxygen Delivery Room Air Medical Decision Making - Lab Data Result diagrams: 10/16/17 12:10 10/16/17 12:10 Lab Results 10/16/17 10/16/17 10/16/17 Range/Units 12:10 12:10 12:30 WBC 9.0 (4.3-11.1) K/mcL RBC 4.68 (3.82-4.97) M/mcL Hgb 13.3 (11.5-15.4) g/dL Hct 40.6 (35.3-44.9) % MCV 86.8 (83.0-100.0) fL MCH 28.4 (28.0-33.3) pg MCHC 32.8 (31.6-35.5) g/dL RDW 14.2 (11.5-14.5) % Plt Count 219 (140-400) K/mcL MPV 9.0 L (9.4-12.4) fL Immature Gran % 0.2 (0-4) % Seg Neutrophils % 72.5 % Lymphocytes % 19.8 % Monocytes % 6.5 % Eosinophils % 0.9 % Basophils % 0.1 % Neutrophils # 6.5 (1.6-8.9) K/mcL Lymphocytes # 1.8 (0.6-4.6) K/mcL Monocytes # 0.6 (0.0-1.3) K/mcL Eosinophils # 0.1 (0.0-0.6) K/mcL Basophils # 0.0 (0.0-0.2) K/mcL Sodium 135 L (136-145) mEq/L Potassium 4.0 (3.5-5.1) mEq/L Chloride 103 (98-107) mEq/L Carbon Dioxide 22 L (23-29) mEq/L BUN 10 (6-20) mg/dL Creatinine 0.73 (0.60-1.20) mg/dL Est GFR ( Amer) > 60 (> 60) Est GFR (Non-Af Amer) > 60 (> 60) BUN/Creatinine Ratio 14 (6-26) Glucose 88 (70-105) mg/dL Calculated Osmolality 278 L (280-300) Calcium 9.4 (8.6-10.3) mg/dL Urine Color Yellow (Yellow) Urine Clarity Cloudy A (Clear) Urine pH 6.5 (5.0-8.0) pH Units Ur Specific [place] 1.013 (1.010-1.025) Urine Protein Negative (Neg-Trace) mg/dL Urine Glucose (UA) Normal (Normal) mg/dL Urine Ketones Negative (Negative) mg/dL Urine Blood Negative (Negative) Urine Nitrite Negative (Negative) Urine Bilirubin Negative (Negative) Urine Urobilinogen Normal (Normal) mg/dL Ur Leukocyte Esterase Negative (Negative) Urine Microscopic RBC 0-3 (0-3) per hpf Urine Microscopic WBC 0-3 (0-3) per hpf Ur Squamous Epith Cells Many H (None-Few) per lpf Urine Bacteria Few (None-Few) per hpf Hyaline Casts None Seen (None-Few) per lpf Urine Test (Negative) Salicylates < 2.5 L (15.0-30.0) mg/dL Urine Opiates Screen (Kwmobo=824) ng/mL Acetaminophen < 10 L (10-20) mcg/mL Ur Barbiturates Screen (Uoooin=344) ng/mL Ur Phencyclidine Scrn (Cutoff=25) ng/mL Ur Amphetamines Screen (Eeyikj=4009) ng/mL U Benzodiazepines Scrn (Speceq=228) ng/mL Urine Cocaine Screen (Cutoff= 300) ng/mL U Marijuana (THC) Screen (Cutoff = 50) ng/mL Ethyl Alcohol < 10 (Less than 10) mg/dL 10/16/17 10/16/17 Range/Units 12:30 12:30 WBC (4.3-11.1) K/mcL RBC (3.82-4.97) M/mcL Hgb (11.5-15.4) g/dL Hct (35.3-44.9) % MCV (83.0-100.0) fL MCH (28.0-33.3) pg MCHC (31.6-35.5) g/dL RDW (11.5-14.5) % Plt Count (140-400) K/mcL MPV (9.4-12.4) fL Immature Gran % (0-4) % Seg Neutrophils % % Lymphocytes % % Monocytes % % Eosinophils % % Basophils % % Neutrophils # (1.6-8.9) K/mcL Lymphocytes # (0.6-4.6) K/mcL Monocytes # (0.0-1.3) K/mcL Eosinophils # (0.0-0.6) K/mcL Basophils # (0.0-0.2) K/mcL Sodium (136-145) mEq/L Potassium (3.5-5.1) mEq/L Chloride (98-107) mEq/L Carbon Dioxide (23-29) mEq/L BUN (6-20) mg/dL Creatinine (0.60-1.20) mg/dL Est GFR ( Amer) (> 60) Est GFR (Non-Af Amer) (> 60) BUN/Creatinine Ratio (6-26) Glucose (70-105) mg/dL Calculated Osmolality (280-300) Calcium (8.6-10.3) mg/dL Urine Color (Yellow) Urine Clarity (Clear) Urine pH (5.0-8.0) pH Units Ur Specific [place] (1.010-1.025) Urine Protein (Neg-Trace) mg/dL Urine Glucose (UA) (Normal) mg/dL Urine Ketones (Negative) mg/dL Urine Blood (Negative) Urine Nitrite (Negative) Urine Bilirubin (Negative) Urine Urobilinogen (Normal) mg/dL Ur Leukocyte Esterase (Negative) Urine Microscopic RBC (0-3) per hpf Urine Microscopic WBC (0-3) per hpf Ur Squamous Epith Cells (None-Few) per lpf Urine Bacteria (None-Few) per hpf Hyaline Casts (None-Few) per lpf Urine Test Negative (Negative) Salicylates (15.0-30.0) mg/dL Urine Opiates Screen Negative (Kuiiku=013) ng/mL Acetaminophen (10-20) mcg/mL Ur Barbiturates Screen Negative (Pvxmsz=266) ng/mL Ur Phencyclidine Scrn Negative (Cutoff=25) ng/mL Ur Amphetamines Screen Negative (Cgkzep=6463) ng/mL U Benzodiazepines Scrn Negative (Avpofp=001) ng/mL Urine Cocaine Screen Negative (Cutoff= 300) ng/mL U Marijuana (THC) Screen Negative (Cutoff = 50) ng/mL Ethyl Alcohol (Less than 10) mg/dL Attestation Statement - Attestation Attestation: I examined this patient and my medical decision-making was reviewed with the Resident Physician. I agree with the documented findings, disposition and treatment plan as described except to the extent set forth below. [id number] time provided Patient arrives by EMS with hallucinations. Previous history of psychiatric disease. She is pleasant and in no acute distress on exam. Medical clearance workup initiated
--- NOTE | 2017-10-16 12:07 | Emergency Department Note ---
Disposition Clinical Impression: Suicidal ideation, Medical clearance for psychiatric admission Disposition: Admitted As Inpatient Condition: Undetermined Referrals: Andrew Cool [Primary Care Provider] - Forms: ED Satisfaction Letter Time of Disposition: 15:25 Psych HPI - General Chief Complaint: ED Psychiatric Symptoms Stated Complaint: SI/depression/hallucinations Time Seen by Provider: 10/16/17 12:03 Source: patient, EMS Mode of arrival: EMS Limitations: no limitations Nursing Notes Reviewed: Yes Vital Signs Reviewed: Yes - History of Present Illness HPI Narrative: 27-year-old female with extensive history of psychiatric disease with previous admissions 2 arrives to the emergency department with complaint of suicidal ideation, visual hallucinations. The patient states that she has been trying to take her medications like normal. She denies any other injuries self injuries including cutting herself or taking any more medicines that she is supposed at this time. The patient does have a history of self injury. Patient denies any other complaints at this time. She is resting comfortably in the room. She denies any chest pain, difficulty in breathing, abdominal pain , dysuria, fevers, chills. - Related Data Home Medications Medication Instructions Recorded Confirmed Levothyroxine [Synthroid] 125 mcg PO QAM 10/29/15 06/29/17 Loratadine [Allergy Relief] 10 mg PO DAILY 05/26/17 06/29/17 Norelgestromin/Ethin.estradiol 1 patch TD QWEEK 05/26/17 06/29/17 [Xulane Patch] Pantoprazole Sodium 20 mg PO BID 05/26/17 06/29/17 Prazosin [Minipress] 1 mg PO HS 05/26/17 06/29/17 Sertraline [Zoloft] 150 mg PO DAILY 05/26/17 06/29/17 hydrOXYzine HCl [Hydroxyzine HCl] 25 mg PO TID PRN 06/28/17 06/29/17 Ondansetron ODT [Zofran ODT] 4 mg PO TID PRN 06/29/17 06/29/17 Previous Rx's Medication Instructions Recorded Cholecalciferol (D-3) [Vitamin D] 1,000 unit PO DAILY #14 tablet 07/01/17 Nystatin Cream [Mycostatin Cream] 1 appl TP TID PRN tube 07/01/17 Permethrin Cream Rinse [Nix] 60 ml TP ONCE #1 liquid 07/29/17 Allergies Allergy/AdvReac Type Severity Reaction Status Date / Time No Known Allergies Allergy Verified 10/16/17 12:08 All systems ED: reviewed and negative except as stated. Constitutional: Denies: fever, chills ENT ED: Denies: congestion Cardiovascular: Denies: chest pain Respiratory: Denies: dyspnea Gastrointestinal: Denies: abdominal pain Genitourinary: Denies: urgency, dysuria Musculoskeletal: Denies: back pain Integumentary: Denies: rash Neurological: Denies: headache Past Medical History - Past Medical History Attestation: Yes The following information was validated with the patient. 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 - Social History Smoking Status: Never smoker Smokeless Tobacco Status: No Alcohol use: Reports: none Drug use: Reports: none Physical Exam - General Limitations: no limitations General appearance: alert, in no apparent distress - Head Head exam: atraumatic, normocephalic, normal inspection - Eye Eye exam: Present: normal appearance, PERRL, EOMI - ENT ENT exam: normal exam, normal oropharynx, mucous membranes moist - Neck Neck exam: Present: normal inspection, full ROM, trachea midline - Chest Chest inspection: Present: normal inspection, symmetric chest wall rise - Respiratory Respiratory exam: Present: normal lung sounds bilaterally - Cardiovascular Cardiovascular exam: Present: regular rate, normal rhythm, normal heart sounds - Abdominal Exam Abdominal exam: Present: soft, Non-Tender. Absent: tenderness, distention, guarding, rebound, rigidity - Extremities Exam Extremities exam: Present: normal inspection, full ROM. Absent: tenderness, pedal edema - Neurological Exam Neurological exam: Present: alert, oriented X3, CN II-XII intact - Psychiatric Psychiatric exam: Present: depressed, anxious, suicidal ideation. Absent: homicidal ideation - Skin Skin exam: Present: warm, dry, intact, normal color Course - Reevaluation(s) Reevaluation #1: 1A called and notified at 1325. Will see patient. Time: 13:25 Vital Signs Temperature 98.3 F 10/16/17 12:09 Pulse Rate 97 10/16/17 12:09 Respiratory Rate 20 10/16/17 12:09 Blood Pressure 116/76 10/16/17 12:09 O2 Sat by Pulse Oximetry 96 10/16/17 12:09 Temperature 98.3 F 10/16/17 12:09 Pulse Rate 97 10/16/17 12:09 Respiratory Rate 20 10/16/17 12:09 Blood Pressure 116/76 10/16/17 12:09 O2 Sat by Pulse Oximetry 96 10/16/17 12:09 Oxygen Delivery Oxygen Delivery Room Air Psych - MDM Narrative Medical decision making narrative: Patient medically cleared. The patient will be admitted to 1 a. - Lab Data Result diagrams: 10/16/17 12:10 10/16/17 12:10 Lab Results 10/16/17 10/16/17 10/16/17 Range/Units 12:10 12:10 12:30 WBC 9.0 (4.3-11.1) K/mcL RBC 4.68 (3.82-4.97) M/mcL Hgb 13.3 (11.5-15.4) g/dL Hct 40.6 (35.3-44.9) % MCV 86.8 (83.0-100.0) fL MCH 28.4 (28.0-33.3) pg MCHC 32.8 (31.6-35.5) g/dL RDW 14.2 (11.5-14.5) % Plt Count 219 (140-400) K/mcL MPV 9.0 L (9.4-12.4) fL Immature Gran % 0.2 (0-4) % Seg Neutrophils % 72.5 % Lymphocytes % 19.8 % Monocytes % 6.5 % Eosinophils % 0.9 % Basophils % 0.1 % Neutrophils # 6.5 (1.6-8.9) K/mcL Lymphocytes # 1.8 (0.6-4.6) K/mcL Monocytes # 0.6 (0.0-1.3) K/mcL Eosinophils # 0.1 (0.0-0.6) K/mcL Basophils # 0.0 (0.0-0.2) K/mcL Sodium 135 L (136-145) mEq/L Potassium 4.0 (3.5-5.1) mEq/L Chloride 103 (98-107) mEq/L Carbon Dioxide 22 L (23-29) mEq/L BUN 10 (6-20) mg/dL Creatinine 0.73 (0.60-1.20) mg/dL Est GFR ( Amer) > 60 (> 60) Est GFR (Non-Af Amer) > 60 (> 60) BUN/Creatinine Ratio 14 (6-26) Glucose 88 (70-105) mg/dL Calculated Osmolality 278 L (280-300) Calcium 9.4 (8.6-10.3) mg/dL Urine Color Yellow (Yellow) Urine Clarity Cloudy A (Clear) Urine pH 6.5 (5.0-8.0) pH Units Ur Specific [place] 1.013 (1.010-1.025) Urine Protein Negative (Neg-Trace) mg/dL Urine Glucose (UA) Normal (Normal) mg/dL Urine Ketones Negative (Negative) mg/dL Urine Blood Negative (Negative) Urine Nitrite Negative (Negative) Urine Bilirubin Negative (Negative) Urine Urobilinogen Normal (Normal) mg/dL Ur Leukocyte Esterase Negative (Negative) Urine Microscopic RBC 0-3 (0-3) per hpf Urine Microscopic WBC 0-3 (0-3) per hpf Ur Squamous Epith Cells Many H (None-Few) per lpf Urine Bacteria Few (None-Few) per hpf Hyaline Casts None Seen (None-Few) per lpf Urine Test (Negative) Salicylates < 2.5 L (15.0-30.0) mg/dL Urine Opiates Screen (Ecmlkw=649) ng/mL Acetaminophen < 10 L (10-20) mcg/mL Ur Barbiturates Screen (Tneztp=266) ng/mL Ur Phencyclidine Scrn (Cutoff=25) ng/mL Ur Amphetamines Screen (Smmxnw=4468) ng/mL U Benzodiazepines Scrn (Sqpvqt=265) ng/mL Urine Cocaine Screen (Cutoff= 300) ng/mL U Marijuana (THC) Screen (Cutoff = 50) ng/mL Ethyl Alcohol < 10 (Less than 10) mg/dL 10/16/17 10/16/17 Range/Units 12:30 12:30 WBC (4.3-11.1) K/mcL RBC (3.82-4.97) M/mcL Hgb (11.5-15.4) g/dL Hct (35.3-44.9) % MCV (83.0-100.0) fL MCH (28.0-33.3) pg MCHC (31.6-35.5) g/dL RDW (11.5-14.5) % Plt Count (140-400) K/mcL MPV (9.4-12.4) fL Immature Gran % (0-4) % Seg Neutrophils % % Lymphocytes % % Monocytes % % Eosinophils % % Basophils % % Neutrophils # (1.6-8.9) K/mcL Lymphocytes # (0.6-4.6) K/mcL Monocytes # (0.0-1.3) K/mcL Eosinophils # (0.0-0.6) K/mcL Basophils # (0.0-0.2) K/mcL Sodium (136-145) mEq/L Potassium (3.5-5.1) mEq/L Chloride (98-107) mEq/L Carbon Dioxide (23-29) mEq/L BUN (6-20) mg/dL Creatinine (0.60-1.20) mg/dL Est GFR ( Amer) (> 60) Est GFR (Non-Af Amer) (> 60) BUN/Creatinine Ratio (6-26) Glucose (70-105) mg/dL Calculated Osmolality (280-300) Calcium (8.6-10.3) mg/dL Urine Color (Yellow) Urine Clarity (Clear) Urine pH (5.0-8.0) pH Units Ur Specific [place] (1.010-1.025) Urine Protein (Neg-Trace) mg/dL Urine Glucose (UA) (Normal) mg/dL Urine Ketones (Negative) mg/dL Urine Blood (Negative) Urine Nitrite (Negative) Urine Bilirubin (Negative) Urine Urobilinogen (Normal) mg/dL Ur Leukocyte Esterase (Negative) Urine Microscopic RBC (0-3) per hpf Urine Microscopic WBC (0-3) per hpf Ur Squamous Epith Cells (None-Few) per lpf Urine Bacteria (None-Few) per hpf Hyaline Casts (None-Few) per lpf Urine Test Negative (Negative) Salicylates (15.0-30.0) mg/dL Urine Opiates Screen Negative (Piemvb=518) ng/mL Acetaminophen (10-20) mcg/mL Ur Barbiturates Screen Negative (Ntlldf=400) ng/mL Ur Phencyclidine Scrn Negative (Cutoff=25) ng/mL Ur Amphetamines Screen Negative (Qjtqfy=6062) ng/mL U Benzodiazepines Scrn Negative (Jhxtmz=963) ng/mL Urine Cocaine Screen Negative (Cutoff= 300) ng/mL U Marijuana (THC) Screen Negative (Cutoff = 50) ng/mL Ethyl Alcohol (Less than 10) mg/dL Psychiatric Medical Clearance - Medical Clearance Checklist Medical History: Suicidal ideation (Acute) Depression (Acute) Major depression, recurrent (Acute) Abdominal pain (Inactive) Abdominal pain (Inactive) Acute anxiety (Inactive) Depression (Inactive) Laceration of right forearm (Inactive) Retention of urine, unspecified (Inactive) Scabies (Inactive) Suicidal ideation (Inactive) Superinfection (Inactive) Tinea corporis (Inactive) No Social History Section defined Current Vitals: Last Vital Signs Temp 98.3 F 10/16/17 12:09 Pulse 97 10/16/17 12:09 Resp 20 10/16/17 12:09 BP 116/76 10/16/17 12:09 Pulse Ox 96 10/16/17 12:09 Psychiatric Lab Panel: Drug Levels and Toxicity 10/16/17 10/16/17 12:10 12:30 Urine Opiates Screen Negative Acetaminophen < 10 L Ur Barbiturates Screen Negative Ur Phencyclidine Scrn Negative Ur Amphetamines Screen Negative U Benzodiazepines Scrn Negative Urine Cocaine Screen Negative U Marijuana (THC) Screen Negative Ethyl Alcohol < 10 Abnormal Labs: Abnormal lab results MPV 9.0 fL (9.4-12.4) L 10/16/17 12:10 Sodium 135 mEq/L (136-145) L 10/16/17 12:10 Carbon Dioxide 22 mEq/L (23-29) L 10/16/17 12:10 Calculated Osmolality 278 (280-300) L 10/16/17 12:10 Urine Clarity Cloudy (Clear) A 10/16/17 12:30 Ur Squamous Epith Cells Many per lpf (None-Few) H 10/16/17 12:30 Salicylates < 2.5 mg/dL (15.0-30.0) L 10/16/17 12:10 Acetaminophen < 10 mcg/mL (10-20) L 10/16/17 12:10 Statement of Medical Clearance: I have evaluated the patient, reviewed diagnostic information, and certify that the patient's medical condition is sufficiently stable that transfer to the psychiatric unit does not pose a significant risk of deterioration.
[2017-10-16 12:21] LABS: Basophils % 0.1 %; Eosinophils # 0.1 K/mcL (0.0-0.6); Eosinophils % 0.9 %; Hematocrit 40.6 % (35.3-44.9); Hemoglobin 13.3 g/dL (11.5-15.4); Immature Granulocytes % 0.2 % (0-4); Lymphocytes # 1.8 K/mcL (0.6-4.6); Lymphocytes % 19.8 %; Mean Corpuscular HGB Conc 32.8 g/dL (31.6-35.5); Mean Corpuscular Hemoglobin 28.4 pg (28.0-33.3); Mean Corpuscular Volume 86.8 fL (83.0-100.0); Monocytes # 0.6 K/mcL (0.0-1.3); Monocytes % 6.5 %; Neutrophils # 6.5 K/mcL (1.6-8.9); Platelet Count 219 K/mcL (140-400); Red Blood Count 4.68 M/mcL (3.82-4.97); Red Cell Distribution Width 14.2 % (11.5-14.5); Segmented Neutrophils % 72.5 %
[2017-10-16 12:51] LABS: Bilirubin,Urine Negative (Negative); Blood,Urine Negative (Negative); Clarity,Urine Cloudy (Clear); Color,Urine Yellow (Yellow); Glucose,Urine (UA) Normal (Normal); Ketones,Urine Negative (Negative); Leukocyte Esterase,Urine Negative (Negative); Nitrite,Urine Negative (Negative); PH,Urine 6.5 pH Units (5.0-8.0); Protein,Urine Negative (Neg-Trace); Specific Gravity,Urine 1.013 (1.010-1.025); Urobilinogen,Urine Normal (Normal)
[2017-10-16 12:53] LABS: BUN/Creatinine Ratio 14 (6-26); Blood Urea Nitrogen 10 mg/dL (6-20); Calcium 9.4 mg/dL (8.6-10.3); Carbon Dioxide 22 mEq/L (23-29); Chloride 103 mEq/L (98-107); Glucose 88 mg/dL (70-105); Osmolality,Calculated 278 (280-300); Sodium 135 mEq/L (136-145); eGFR For African Americans > 60 (> 60); eGFR For Non-African Americans > 60 (> 60)
[2017-10-16 12:56] LABS: Bacteria,Urine Few per hpf (None-Few); Hyaline Casts,Urine None Seen per lpf (None-Few); RBC,Urine 0-3 per hpf (0-3); Squamous Epithelial Cell,Urine Many per lpf (None-Few); WBC,Urine 0-3 per hpf (0-3)
[2017-10-16 13:13] LABS: Amphetamine Screen,Urine Negative ng/mL (Cutoff=1000); Barbiturate Screen,Urine Negative ng/mL (Cutoff=200); Benzodiazepines Screen,Urine Negative ng/mL (Cutoff=200); Cannabinoid Screen,Urine Negative ng/mL (Cutoff = 50); Cocaine Screen,Urine Negative ng/mL (Cutoff= 300); Opiate Screen,Urine Negative ng/mL (Cutoff=300); Phencyclidine Screen,Urine Negative ng/mL (Cutoff=25)
[2017-10-16 13:14] LABS: Acetaminophen < 10 mcg/mL (10-20)
[2017-10-16 13:22] LABS: Ethanol < 10 mg/dL (Less than 10); Salicylate < 2.5 mg/dL (15.0-30.0)
[2017-10-16] MEDS ORDERED: Haloperidol Lactate 5 MG/ML VIAL IM PRN (16:30)
[2017-10-16] MEDS ORDERED: *HR* LORazepam 1 MG TABLET PO PRN (16:30)
[2017-10-16] MEDS ORDERED: Ibuprofen 400 MG TABLET PO PRN (16:30)
[2017-10-16] MEDS ORDERED: Mag Hydrox/Al Hydrox/Simeth 30 ML UDC PO PRN (16:30)
[2017-10-16] MEDS ORDERED: MOM Conc 10 ML UD.LIQ PO PRN (16:30)
[2017-10-16] MEDS ORDERED: *HR* LORazepam 2 MG/ML VIAL IM PRN (16:30)
[2017-10-16] MEDS ORDERED: hydrOXYzine pamoate 25 MG CAPSULE PO PRN (16:33)
[2017-10-16] MEDS ORDERED: NORELGESTROMIN TP SCH (16:45)
[2017-10-16] MEDS ORDERED: ETHINYL ESTRADIOL TP SCH (16:45)
[2017-10-16] MEDS: (Loxapine Succinate [Loxapine] 10 MG) PO SCH (21:51)
[2017-10-17 07:38] LABS: Chol/HDL Ratio 4.9 (0-4.9)
[2017-10-17 07:51] LABS: Thyroid Stimulating Hormone 1.688 mcIU/mL (0.340-5.600)
[2017-10-17] MEDS: ARIPiprazole 2 MG TABLET PO SCH (08:44)
[2017-10-17] MEDS: Loratadine 10 MG TABLET PO SCH (08:44)
[2017-10-17] MEDS: Cholecalciferol (D-3) 1,000 UNIT TABLET PO SCH (08:45)
[2017-10-17 10:29] LABS: Estimated Average Glucose 128 mg/dl; Hemoglobin A1C 6.1 %
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
[2017-10-17] MEDS: (Loxapine Succinate [Loxapine] 10 MG) PO SCH (20:40)
[2017-10-18] MEDS: Cholecalciferol (D-3) 1,000 UNIT TABLET PO SCH (08:30)
[2017-10-18] MEDS: ARIPiprazole 2 MG TABLET PO SCH (08:30)
[2017-10-18] MEDS: Loratadine 10 MG TABLET PO SCH (08:30)
--- NOTE | 2017-10-18 10:40 | Psychiatry Progress Note ---
Date of Encounter: 10/18/17 Time of Encounter: 10:19 Subjective Interval history: Patient seen today, case d/w staff . laughing loudly and states i am fine today , i want ot be on 150 of zoloft as 200 gave me side effects. explained she is on 150 mg. she denies any side effects , states i slept fine yesterday , she is laughing loudly after every sentence. she denies seeing her sister or hearing her voice today , she does not have thoughts of cutting self. She is attending some groups, states laughing loudly at least i am up and not in bed like i always do. Continue monitoring her behaviours and continue stabilization. Labs reviewed hga1c 6.1, increase triglycerides, normal TSH . Review of Systems Psychiatric: Reports: depression, anxiety, suicidal ideation, auditory hallucinations, visual hallucinations, hopelessness Results - Vital Signs Vital Signs: Temp Pulse Resp BP Pulse Ox 98.1 F 90 18 129/87 96 10/18/17 07:55 10/18/17 07:55 10/18/17 07:55 10/18/17 07:55 10/16/17 12:09 - Labs Labs: Laboratory Results - last 24 hr 10/17/17 06:55 Est Mean Plasma Glucose 128 Hemoglobin A1c 6.1 H Assessment and Plan (1) Suicidal ideation Current visit: Yes Status: Acute Plan: Continue hospitalization, Close observation, Suicide Precautions per unit protocol, Encourage participation in unit milieu, Group Therapy, Monitor sleep, Monitor appetite, Family/Supportive other meeting Risks, benefits, side effects, alternatives discussed w/pt: Yes Patient agreeable to treatment: Yes (2) Psychosis Current visit: Yes Status: Acute Plan: Continue hospitalization, Close observation, Suicide Precautions per unit protocol, Encourage participation in unit milieu, Group Therapy, Monitor sleep, Monitor appetite, Family/Supportive other meeting Risks, benefits, side effects, alternatives discussed w/pt: Yes Patient agreeable to treatment: Yes Qualifiers: Psychosis type: unspecified psychosis type Qualified Code(s): F29 - Unspecified psychosis not due to a substance or known physiological condition (3) Depression Current visit: No Status: Acute Plan: Continue hospitalization, Close observation, Suicide Precautions per unit protocol, Encourage participation in unit milieu, Group Therapy, Monitor sleep, Monitor appetite, Family/Supportive other meeting Risks, benefits, side effects, alternatives discussed w/pt: Yes Patient agreeable to treatment: Yes Qualifiers: Depression Type: major depressive disorder Major depression recurrence: recurrent Active/Remission status: currently active Major depression episode severity: moderate Qualified Code(s): F33.1 - Major depressive disorder, recurrent, moderate Consult Discharge Plan - Plan Referrals: Andrew Cool [Primary Care Provider] - Psychiatry Exam - Constitutional Vitals: Temp Pulse Resp BP Pulse Ox 98.1 F 90 18 129/87 96 10/18/17 07:55 10/18/17 07:55 10/18/17 07:55 10/18/17 07:55 10/16/17 12:09 General appearance: obese - Musculoskeletal Gait: slow Station: relaxed Strength & Tone: normal for patient - Psychiatric Patient Orientation: Yes Person, Yes Time, Yes Place Level of alertness: Alert Behavior: cooperative, other Psychomotor activity: Normal Eye Contact: Maintains Eye Contact Mood Description: Euphoric Affect description: blunted Speech Volume: Loud Language & Vocabulary: consistent with education Thought Process: [place] Thought Content: Yes Paranoid delusion Perceptual Disturbances: No Auditory hallucinations, No Visual hallucinations Attention Span Ability: Unable to Sustain Attention Memory Description: Grossly Intact Patient Reliability: Questionable Historian Judgment: Limited Insight: Partial
[2017-10-18] MEDS: (Loxapine Succinate [Loxapine] 10 MG) PO SCH (21:00)
[2017-10-19] MEDS: Cholecalciferol (D-3) 1,000 UNIT TABLET PO SCH (08:54)
[2017-10-19] MEDS: Loratadine 10 MG TABLET PO SCH (08:54)
[2017-10-19] MEDS: ARIPiprazole 2 MG TABLET PO SCH (08:54)
[2017-10-19 09:33] VITALS: BP 128/82
--- NOTE | 2017-10-19 11:48 | Discharge Summary ---
Date of Encounter: 10/19/17 Time of Encounter: 09:20 Diagnosis - Discharge Diagnosis (1) Major depression, recurrent Status: Acute Qualifiers: Active/Remission status: currently active Major depression episode severity : moderate Qualified Code(s): F33.1 - Major depressive disorder, recurrent, moderate (2) Anxiety Status: Acute Medications - Discharge Medications Prescriptions: ARIPiprazole [Abilify] 2 mg PO DAILY #30 tablet Cholecalciferol (D-3) [Vitamin D] 1,000 unit PO DAILY #14 tablet Levothyroxine [Synthroid] 125 mcg PO QAM 10/29/15 [History] Loratadine [Allergy Relief] 10 mg PO DAILY 05/26/17 [History] Norelgestromin/Ethin.estradiol [Xulane Patch] 1 patch TD QWEEK 05/26/17 [History ] Pantoprazole Sodium 40 mg PO DAILY 05/26/17 [History] Prazosin [Minipress] 1 mg PO HS 05/26/17 [History] Sertraline [Zoloft] 150 mg PO DAILY 05/26/17 [History] hydrOXYzine HCl [Hydroxyzine HCl] 25 mg PO TID PRN 06/28/17 [History] Loxapine Succinate [Loxapine] 10 mg PO HS 10/16/17 [History] ARIPiprazole [Abilify] 2 mg PO DAILY #30 tablet 10/19/17 [Rx] Cholecalciferol (D-3) [Vitamin D] 1,000 unit PO DAILY #14 tablet 10/19/17 [Rx] 3 Allergy/AdvReac Type Severity Reaction Status Date / Time No Known Allergies Allergy Verified 10/16/17 12:08 Results Procedures and tests throughout hospitalization: Completed Lab Orders Category Date Time Status Hgb A1C Routine Lab 10/17/17 06:55 Completed Lipid Panel Routine Lab 10/17/17 06:55 Completed TSH [Thyroid Stimulating Hormone] Routine Lab 10/17/17 06:55 Completed Provider Date of admission: 10/16/17 15:31 Primary care physician: PCP NONE Consults: 10/16/17 16:39 Consult to Pastoral Services [CONS] Routine Comment: Discharging clinician: Josie Ngo Psychiatry Exam - Constitutional Vitals: Temp Pulse Resp BP Pulse Ox 97.8 F 80 20 128/82 96 10/19/17 09:00 10/19/17 09:00 10/19/17 09:00 10/19/17 09:00 10/16/17 12:09 General appearance: age & developmentally appropriate, obese - Musculoskeletal Gait: normal Station: relaxed Strength & Tone: normal for patient - Psychiatric Patient Orientation: Yes Person, Yes Time, Yes Place Level of alertness: Alert Behavior: calm, cooperative Psychomotor activity: Normal Eye Contact: Maintains Eye Contact Mood Description: Euthymic/stable Affect description: congruent with mood, full range Speech Volume: Normal Speech pattern: normal rate, normal rhythm, normal tone Language & Vocabulary: consistent with education Thought Process: Linear, Goal Oriented, [place] Thought Content: No Suicidal ideation, No Homicidal ideation, No Overt delusions Perceptual Disturbances: No Auditory hallucinations, No Visual hallucinations Attention Span Ability: Capable of Focused Attention Memory Description: Grossly Intact Patient Reliability: Reliable Historian Fund of knowledge: Yes below average, Yes aware of current events Intelligence Estimate: Below Average Judgment: Limited Insight: Partial Hospital Course Hospital course: Ms. Chavarria is a 27 year old female is a 27 -year-old female with a history of depression and anxiety. She presented to the hospital in distress is more depressed and suicidal. She also has a history of hallucinations. She was admitted to for psychiatric stabilization. Patient was incorporated into the therapeutic milieu and offer group and individual as well as as well as recreational therapies. She was also offered psychoeducational materials and supportive therapy. She was placed on suicide precautions and close observation per unit protocol. Patient was admitted and restarted on home medications. Abilify 2 mg by mouth daily was added to her current medications and she started to note some improvement in her mood. She was also given vitamin D. Patient states that she feels her new medications are helping. She denies thoughts of wanting to hurt herself now. She states she really got upset with her aunt and that is one of the reasons why she felt suicidal. She has attended some group and unit activities while on the unit. She is cooperative with peers and staff. She denies auditory or visual hallucinations and thought process is concrete but linear. Reality based thought content as well. She denies suicidal or homicidal ideation, intent, or plan. She is willing to continue her current medications on discharge. She will follow-up with her outpatient provider. She is discharged in stable condition. - Time Spent with Patient Total time spent providing and/or coordinating discharge services: Greater than 30 minutes Assessment and Plan - Patient/Caregiver Discharge Instructions Activity: resume usual activities as tolerated Diet: regular diet - Follow up Plan Follow up with: [facility] [Outside] - 10/28/17 3:00 pm (The above appointment is with Katy Dhillon for outpatient mental health counseling and case management servcies. You will also see Allison Miles for outpatient psychiatric assessment and medication management services on 11/03/2017 at 4:30 PM.) Functional capacity at discharge: independent ambulation Overall status at discharge: Stable Disposition: Home, Self-Care Quality - Multiple Antipsychotics Patient discharged on 2 or more antipsychotic medications: Yes - Justification Documentation of: Cross-taper in progress at time of discharge Procedures - Procedures Procedures: Medication Management, Crisis Stabilization, Supportive Therapy, Group Therapy, Psychoeducational Therapy
== END 2017-10-19 12:50 | disposition home or self-care (01) | DRG 751 ==
LOC: EMEROO 12:01 → 1ANU 15:31
PROVIDERS: ADMIT Psychiatry & Neurology Psychiatry; ATTEND Psychiatry & Neurology Psychiatry

== ENCOUNTER 2018-01-19 14:00 | Inpatient (IN) ==
[2018-01-19 14:53] LABS: Basophils % 0.1 %; Eosinophils # 0.1 K/mcL (0.0-0.6); Eosinophils % 0.6 %; Hematocrit 42.7 % (35.3-44.9); Hemoglobin 13.9 g/dL (11.5-15.4); Immature Granulocytes % 0.3 % (0-4); Lymphocytes # 1.5 K/mcL (0.6-4.6); Lymphocytes % 18.8 %; Mean Corpuscular HGB Conc 32.6 g/dL (31.6-35.5); Mean Corpuscular Hemoglobin 29.1 pg (28.0-33.3); Mean Corpuscular Volume 89.5 fL (83.0-100.0); Mean Platelet Volume 9.2 fL (9.4-12.4); Monocytes # 0.5 K/mcL (0.0-1.3); Monocytes % 5.8 %; Neutrophils # 5.9 K/mcL (1.6-8.9); Platelet Count 216 K/mcL (140-400); Red Blood Count 4.77 M/mcL (3.82-4.97); Red Cell Distribution Width 14.7 % (11.5-14.5); Segmented Neutrophils % 74.4 %
--- NOTE | 2018-01-19 14:56 | Emergency Department Note ---
Disposition Clinical Impression: Suicidal ideation Disposition: Admitted As Inpatient Condition: Good Referrals: NONE,PCP [Primary Care Provider] - Time of Disposition: 16:52 Psych HPI - General Chief Complaint: ED Psychiatric Symptoms Stated Complaint: SI Time Seen by Provider: 01/19/18 14:28 Source: patient Limitations: no limitations Nursing Notes Reviewed: Yes Vital Signs Reviewed: Yes - History of Present Illness HPI Narrative: 28 year old obese white female presents for "suicidal thoughts." Patient states she's thinking of cutting herself and lighting people on fire. Patient reports no plans to follow through on these thoughts. Patient denies anything happened to trigger these thoughts. Patient denies past suicidal attempts and access to guns. Denies visual and auditory hallucinations. States there has been no recent change in meds and that she's taking them all as directed. Patient reports not sleeping well due to nightmares. Medical history includes anxiety/ depression, PTSD, psychosis, hypothyroid, GERD, and hypertension. Denies any recent stress, tobacco, alcohol, and drugs. Denies Denies chest pain, shortness of breath, fever, chills, weight loss, swelling, nausea, vomiting, numbness, tingling, abdominal pain, visual changes, auditory changes, weakness, dizziness , urinary changes, bowel changes, headache. - Related Data Home Medications Medication Instructions Recorded Confirmed Levothyroxine [Synthroid] 125 mcg PO QAM 10/29/15 10/16/17 Loratadine [Allergy Relief] 10 mg PO DAILY 05/26/17 10/16/17 Norelgestromin/Ethin.estradiol 1 patch TD QWEEK 05/26/17 10/16/17 [Xulane Patch] Pantoprazole Sodium 40 mg PO DAILY 05/26/17 10/16/17 Prazosin [Minipress] 1 mg PO HS 05/26/17 10/16/17 Sertraline [Zoloft] 150 mg PO DAILY 05/26/17 10/16/17 hydrOXYzine HCl [Hydroxyzine HCl] 25 mg PO TID PRN 06/28/17 10/16/17 Loxapine Succinate [Loxapine] 10 mg PO HS 10/16/17 10/16/17 Previous Rx's Medication Instructions Recorded ARIPiprazole [Abilify] 2 mg PO DAILY #30 tablet 10/19/17 Cholecalciferol (D-3) [Vitamin D] 1,000 unit PO DAILY #14 tablet 10/19/17 Allergies Allergy/AdvReac Type Severity Reaction Status Date / Time No Known Allergies Allergy Verified 10/16/17 12:08 All systems ED: reviewed and negative except as stated. 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 Absent: tenderness, thyromegaly - Respiratory Respiratory exam: Present: normal lung sounds bilaterally - Cardiovascular Cardiovascular exam: Present: regular rate, normal rhythm, normal heart sounds - Abdominal Exam Abdominal exam: Present: soft, Non-Tender, normal bowel sounds. Absent: tenderness, distention, guarding, rebound, rigidity, bruit - Extremities Exam Extremities exam: Present: normal inspection, full ROM. Absent: tenderness, pedal edema - Neurological Exam Neurological exam: Present: alert, oriented X3, CN II-XII intact - Psychiatric Psychiatric exam: Present: normal affect, normal mood - Skin Skin exam: Present: warm, dry, intact, normal color, other (No cuts or lacerations. Multiple bug bites over arms and legs. Nurse found bedbugs on patient. ) Course Course Narrative: 28 year old female with history of anxiety/depression, PTSD, and psychosis presents for suicidal ideation. Patient denies any plans for suicide or homicide. Review of patient's medical records show multiple visits for suicidal ideation. Blood pressure and heart rate are elevated at 154/85 and 120, respectively. Patient is alert and oriented and of non-toxic appearance. Patient rests comfortably in bed and appears in good mood, is pleasant, and speaks openly. Will order psych workup. - Reevaluation(s) Reevaluation #1: Ethanol is 12. Otherwise, labwork is negative. Completed pink slip for thorough psych evaluation. Time: 16:32 Reevaluation #2: Psych came to evaluate patient. Patient to be admitted. Time: 16:51 Vital Signs Temperature 98.1 F 01/19/18 14:03 Pulse Rate 120 01/19/18 14:03 Respiratory Rate 20 01/19/18 14:03 Blood Pressure 154/85 01/19/18 14:03 O2 Sat by Pulse Oximetry 92 01/19/18 14:03 Temperature 98.1 F 01/19/18 14:03 Pulse Rate 120 01/19/18 14:03 Respiratory Rate 20 01/19/18 14:03 Blood Pressure 154/85 01/19/18 14:03 O2 Sat by Pulse Oximetry 92 01/19/18 14:03 Oxygen Delivery Oxygen Delivery Room Air Psych - Medical Records Medical records reviewed: Yes I reviewed the patient's medical records. - Lab Data Lab results reviewed: Yes I reviewed the patient's lab results. Lab Results 01/19/18 Range/Units 14:41 Ur Drug Screen Interp See Below Psychiatric Medical Clearance - Medical Clearance Checklist Medical History: No Social History Section defined Current Vitals: Last Vital Signs Temp 98.1 F 01/19/18 14:03 Pulse 120 01/19/18 14:03 Resp 20 01/19/18 14:03 BP 154/85 01/19/18 14:03 Pulse Ox 92 01/19/18 14:03 Statement of Medical Clearance: I have evaluated the patient, reviewed diagnostic information, and certify that the patient's medical condition is sufficiently stable that transfer to the psychiatric unit does not pose a significant risk of deterioration.
--- NOTE | 2018-01-19 15:01 | Emergency Department Note ---
Disposition Clinical Impression: Suicidal ideation Disposition: Still a Patient Referrals: NONE,PCP [Primary Care Provider] - Forms: ED Satisfaction Letter General Adult HPI - General Chief complaint: ED Psychiatric Symptoms Stated complaint: SI Time Seen by Provider: 01/19/18 14:28 Source: patient Limitations: no limitations - History of Present Illness Pain Scale: 0 - Related Data Home Medications Medication Instructions Recorded Confirmed Levothyroxine [Synthroid] 125 mcg PO QAM 10/29/15 10/16/17 Loratadine [Allergy Relief] 10 mg PO DAILY 05/26/17 10/16/17 Norelgestromin/Ethin.estradiol 1 patch TD QWEEK 05/26/17 10/16/17 [Xulane Patch] Pantoprazole Sodium 40 mg PO DAILY 05/26/17 10/16/17 Prazosin [Minipress] 1 mg PO HS 05/26/17 10/16/17 Sertraline [Zoloft] 150 mg PO DAILY 05/26/17 10/16/17 hydrOXYzine HCl [Hydroxyzine HCl] 25 mg PO TID PRN 06/28/17 10/16/17 Loxapine Succinate [Loxapine] 10 mg PO HS 10/16/17 10/16/17 Previous Rx's Medication Instructions Recorded ARIPiprazole [Abilify] 2 mg PO DAILY #30 tablet 10/19/17 Cholecalciferol (D-3) [Vitamin D] 1,000 unit PO DAILY #14 tablet 10/19/17 Allergies Allergy/AdvReac Type Severity Reaction Status Date / Time No Known Allergies Allergy Verified 10/16/17 12:08 Past Medical History - Past Medical History Medical history: Reports: GERD, hypertension, thyroid disease, other Surgical history: Reports: cholecystectomy Psychiatric history: Reports: depression, PTSD, prior suicide attempt, previous psychiatric hospitalization, other 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 I agree with the documented findings, disposition and treatment plan as described except to the extent set forth below. Patient seen with transitional resident Dr. Dior, Please see a copy of his note for details of the H&P, ED evaluation, management and disposition. I have independently evaluated the patient and confirmed appropriate portions of the history and physical exam. Briefly: 28-year-old female history of mental health disorder presents by EMS for suicidal ideations. Patient has plan and means. As per mental health issues. Patient is cooperative awake alert no signs of injury denies any intoxicants today. Patient will get screening labs and then mental health evaluation. Disposition pending. Time: 14:59 Vital Signs Temperature 98.1 F 01/19/18 14:03 Pulse Rate 120 01/19/18 14:03 Respiratory Rate 20 01/19/18 14:03 Blood Pressure 154/85 01/19/18 14:03 O2 Sat by Pulse Oximetry 92 01/19/18 14:03 Temperature 98.1 F 01/19/18 14:03 Pulse Rate 120 01/19/18 14:03 Respiratory Rate 20 01/19/18 14:03 Blood Pressure 154/85 01/19/18 14:03 O2 Sat by Pulse Oximetry 92 01/19/18 14:03 Oxygen Delivery Oxygen Delivery Room Air Medical Decision Making - Lab Data Result diagrams: 01/19/18 14:42 Lab Results 01/19/18 01/19/18 01/19/18 Range/Units 14:41 14:41 14:42 WBC 7.9 (4.3-11.1) K/mcL RBC 4.77 (3.82-4.97) M/mcL Hgb 13.9 (11.5-15.4) g/dL Hct 42.7 (35.3-44.9) % MCV 89.5 (83.0-100.0) fL MCH 29.1 (28.0-33.3) pg MCHC 32.6 (31.6-35.5) g/dL RDW 14.7 H (11.5-14.5) % Plt Count 216 (140-400) K/mcL MPV 9.2 L (9.4-12.4) fL Immature Gran % 0.3 (0-4) % Seg Neutrophils % 74.4 % Lymphocytes % 18.8 % Monocytes % 5.8 % Eosinophils % 0.6 % Basophils % 0.1 % Neutrophils # 5.9 (1.6-8.9) K/mcL Lymphocytes # 1.5 (0.6-4.6) K/mcL Monocytes # 0.5 (0.0-1.3) K/mcL Eosinophils # 0.1 (0.0-0.6) K/mcL Basophils # 0.0 (0.0-0.2) K/mcL Urine Test Negative (Negative) Ur Drug Screen Interp See Below
[2018-01-19 15:08] LABS: Amphetamine Screen,Urine Negative ng/mL (Cutoff=1000); Barbiturate Screen,Urine Negative ng/mL (Cutoff=200); Benzodiazepines Screen,Urine Negative ng/mL (Cutoff=200); Cannabinoid Screen,Urine Negative ng/mL (Cutoff = 50); Cocaine Screen,Urine Negative ng/mL (Cutoff= 300); Opiate Screen,Urine Negative ng/mL (Cutoff=300); Phencyclidine Screen,Urine Negative ng/mL (Cutoff=25)
[2018-01-19 15:20] LABS: Acetaminophen < 10 mcg/mL (10-20); BUN/Creatinine Ratio 10 (6-26); Blood Urea Nitrogen 8 mg/dL (6-20); Calcium 9.4 mg/dL (8.6-10.3); Carbon Dioxide 29 mEq/L (23-29); Chloride 101 mEq/L (98-107); Ethanol 12 mg/dL (Less than 10); Glucose 128 mg/dL (70-105); Osmolality,Calculated 284 (280-300); Potassium 4.4 mEq/L (3.5-5.1); Salicylate < 2.5 mg/dL (15.0-30.0); Sodium 137 mEq/L (136-145); eGFR For Non-African Americans > 60 (> 60)
[2018-01-19 16:04] LABS: Bilirubin,Urine Negative (Negative); Blood,Urine Negative (Negative); Color,Urine Yellow (Yellow); Ketones,Urine Negative (Negative); Leukocyte Esterase,Urine Negative (Negative); Nitrite,Urine Negative (Negative); Protein,Urine Negative (Neg-Trace); Specific Gravity,Urine 1.012 (1.010-1.025); Urobilinogen,Urine Normal (Normal)
[2018-01-19 16:05] LABS: Glucose,Urine (UA) Normal (Normal)
[2018-01-19 16:07] LABS: Clarity,Urine Clear (Clear)
[2018-01-19] MEDS ORDERED: hydrOXYzine pamoate 25 MG CAPSULE PO PRN (17:09)
[2018-01-19] MEDS ORDERED: Acetaminophen 325 MG TABLET PO PRN (17:10)
[2018-01-19] MEDS ORDERED: *HR* LORazepam 1 MG TABLET PO PRN (17:10)
[2018-01-19] MEDS ORDERED: Mag Hydrox/Al Hydrox/Simeth 30 ML UDC PO PRN (17:10)
[2018-01-19] MEDS ORDERED: *HR* LORazepam 2 MG/ML VIAL IM PRN (17:10)
[2018-01-19] MEDS ORDERED: Haloperidol Lactate 5 MG/ML VIAL IM PRN (17:10)
[2018-01-19] MEDS ORDERED: MOM Conc 10 ML UD.LIQ PO PRN (17:10)
[2018-01-19] MEDS ORDERED: NORELGESTROMIN TP SCH (17:15)
[2018-01-19] MEDS ORDERED: ETHINYL ESTRADIOL TP SCH (17:15)
[2018-01-19] MEDS: traZODone 50 MG TABLET PO PRN (20:37)
[2018-01-19] MEDS: (Loxapine Succinate [Loxapine] 10 MG) PO SCH (21:03)
[2018-01-20] MEDS: Cholecalciferol (D-3) 1,000 UNIT TABLET PO SCH (08:58)
[2018-01-20] MEDS: Loratadine 10 MG TABLET PO SCH (08:58)
[2018-01-20] MEDS ORDERED: ARIPiprazole 2 MG TABLET PO SCH (09:00)
[2018-01-20 09:22] LABS: Bacteria,Urine Few per hpf (None-Few); Hyaline Casts,Urine None Seen per lpf (None-Few); RBC,Urine 0-3 per hpf (0-3); Squamous Epithelial Cell,Urine Many per lpf (None-Few)
--- NOTE | 2018-01-20 10:31 | Psychiatry History & Physical ---
Date of Encounter: 01/20/18 Time of Encounter: 10:00 History of Present Illness Patient Stated Chief Complaint: i had nightmares and i am suicidal Medicare Admission Attestation: For traditional Medicare patients the provided hospital inpatient services are reasonable and necessary and in the case of services not specified as inpatient -only under 42 CFR 419.22 (n), that they are appropriately provided as inpatient services in accordance 42 CFR 412.3. For Critical Access Hospital the patient may reasonably be expected to be discharged or transferred to a hospital within 96 hours after admission to the Critical Access Hospital. Admitted From: Emergency Dept Plans for Post Hospital Care: Home History of Present Illness: Ms. Chavarria is a 28 year old female evaluated today , was admitted from ED. HPI Patient has with extensive history of psychiatric illness with previous admissions 3, last admission was in 10/30. , h/o developmental delay , depression , PTSD ,suicidal ideation and psychosis. arrives to the emergency department with complaint of suicidal ideation, homicidal ideation wants to hurt her BF and auditory hallucination telling her to kill herself , was thinking about cutting self. The patient states that she has been trying to take her medications like normal. She denies any other injuries self injuries including cutting herself or taking any more medicines that she is supposed at this time. The patient does have a history of self injury. At present having commanding hallucinations to hurt herself by cutting and hurt her boy friend. denies drugs/cig/alcohol. patient need inpatient for stabilization of psychosis and suicidal/homicidal ideation. Past Med Surg Social Fam HX - Past Medical History Medical history: GERD, hypertension, thyroid disease, other - Past Surgical History Surgical History: cholecystectomy - Social History Smoking Status: Never smoker Smokeless Tobacco Status: No Alcohol use: none Drug use: none Occupational status: unemployed Activity Level: Independent ambulation Recent Out of Country Travel Within the Last 8 Weeks: No Exposure or Possible Exposure to Illness During Travel: No - Family History Father Adopted: No Family Member Ethnicity: Non- Living Status: Still Living Hx Family Cardiac Disorders: No Hx Family Respiratory Disorders: Yes (sleep apnea) Hx Family Cancer: No Hx Family GI Disorders: Yes (shot in stomach at age 18) Hx Family Endocrine Disorder: Yes Hx Family Neuromuscular Disorders: No Hx Family Neurologic Disorders: No Hx Family HEENT Disorders: No Hx Family Autoimmune Disorders: No Medications & Allergies Levothyroxine [Synthroid] 125 mcg PO QAM 10/29/15 [History] Loratadine [Allergy Relief] 10 mg PO DAILY 05/26/17 [History] Norelgestromin/Ethin.estradiol [Xulane Patch] 1 patch TD QWEEK 05/26/17 [History ] Pantoprazole Sodium 40 mg PO DAILY 05/26/17 [History] Sertraline [Zoloft] 200 mg PO DAILY 05/26/17 [History] Loxapine Succinate [Loxapine] 10 mg PO HS 10/16/17 [History] ARIPiprazole [Abilify] 2 mg PO DAILY #30 tablet 10/19/17 [Rx] Cholecalciferol (D-3) [Vitamin D] 1,000 unit PO DAILY #14 tablet 10/19/17 [Rx] Prazosin HCl [Minipress] 2 mg PO BID 01/19/18 [History] hydrOXYzine pamoate [HydrOXYzine Pamoate] 50 mg PO QID PRN 01/19/18 [History] 3 Allergy/AdvReac Type Severity Reaction Status Date / Time No Known Allergies Allergy Verified 01/19/18 16:45 Review of Systems Constitutional: Denies: fever, chills, weakness, weight change Eyes: Denies: eye pain, vision change Ears, Nose, Throat: Denies: ear pain, throat pain, dental pain, hearing loss, congestion Cardiovascular: Denies: chest pain, palpitations, dyspnea on exertion Respiratory: Denies: cough, dyspnea, wheezes Gastrointestinal: Denies: abdominal pain, nausea, vomiting, diarrhea, constipation Genitourinary female: Denies: urgency, dysuria, frequency, abnormal menses, dyspareunia Musculoskeletal: Denies: joint swelling, joint pain Integumentary: Denies: rash, lesions, pruritus Neurological: Denies: headache, weakness, numbness, memory loss Psychiatric: Reports: depression, abnormal sleep pattern, suicidal ideation, homicidal ideation, auditory hallucinations, difficulty concentrating Endocrine: Denies: fatigue, heat or cold intolerance Hematologic/Lymphatic: Denies: easy bruising, lymphadenopathy Allergic/Immunologic: Denies: urticaria, itchy eyes Exam - HEENT Head exam IM: Present: atraumatic Eye exam IM: Present: EOMI, normal appearance, PERRL ENT exam IM: Present: normal exam - Neurological Neurological exam: Present: CN II-XII intact - Respiratory Respiratory exam IM: Present: CTAB - GI/Abdominal GI/Abdominal exam IM: Present: normal bowel sounds, soft. Absent: tenderness - Extremities Extremities exam IM: Present: full ROM - Skin Skin exam IM: Present: dry, warm - Constitutional Vitals: Temp Pulse Resp BP Pulse Ox 97.7 F 88 18 128/84 92 01/20/18 09:00 01/20/18 09:00 01/20/18 09:00 01/20/18 09:00 01/19/18 14:03 General appearance: age & developmentally appropriate, unkempt - Musculoskeletal Gait: slow Station: relaxed Strength & Tone: normal for patient - Psychiatric Patient Orientation: Yes Person, Yes Time, Yes Place Level of alertness: Alert Behavior: calm, cooperative Psychomotor activity: Slowed Eye Contact: Maintains Eye Contact Mood Description: Euthymic/stable Affect description: constricted Speech Volume: Soft/Quiet Speech pattern: slowed Language & Vocabulary: limited Thought Process: [place], Slowed Thinking Thought Content: Yes Suicidal ideation, Yes Homicidal ideation, Yes Preoccupation, Yes Paranoid delusion Perceptual Disturbances: Yes Auditory hallucinations Attention Span Ability: Unable to Sustain Attention Memory Description: Grossly Intact Patient Reliability: Reliable Historian Fund of knowledge: Yes below average Intelligence Estimate: Below Average Judgment: Poor Insight: Minimal Results - Labs Labs: Laboratory Last Values WBC 7.9 K/mcL (4.3-11.1) 01/19/18 14:42 RBC 4.77 M/mcL (3.82-4.97) 01/19/18 14:42 Hgb 13.9 g/dL (11.5-15.4) 01/19/18 14:42 Hct 42.7 % (35.3-44.9) 01/19/18 14:42 MCV 89.5 fL (83.0-100.0) 01/19/18 14:42 MCH 29.1 pg (28.0-33.3) 01/19/18 14:42 MCHC 32.6 g/dL (31.6-35.5) 01/19/18 14:42 RDW 14.7 % (11.5-14.5) H 01/19/18 14:42 Plt Count 216 K/mcL (140-400) 01/19/18 14:42 MPV 9.2 fL (9.4-12.4) L 01/19/18 14:42 Immature Gran % 0.3 % (0-4) 01/19/18 14:42 Seg Neutrophils % 74.4 % 01/19/18 14:42 Lymphocytes % 18.8 % 01/19/18 14:42 Monocytes % 5.8 % 01/19/18 14:42 Eosinophils % 0.6 % 01/19/18 14:42 Basophils % 0.1 % 01/19/18 14:42 Neutrophils # 5.9 K/mcL (1.6-8.9) 01/19/18 14:42 Lymphocytes # 1.5 K/mcL (0.6-4.6) 01/19/18 14:42 Monocytes # 0.5 K/mcL (0.0-1.3) 01/19/18 14:42 Eosinophils # 0.1 K/mcL (0.0-0.6) 01/19/18 14:42 Basophils # 0.0 K/mcL (0.0-0.2) 01/19/18 14:42 Sodium 137 mEq/L (136-145) 01/19/18 14:42 Potassium 4.4 mEq/L (3.5-5.1) 01/19/18 14:42 Chloride 101 mEq/L (98-107) 01/19/18 14:42 Carbon Dioxide 29 mEq/L (23-29) 01/19/18 14:42 BUN 8 mg/dL (6-20) 01/19/18 14:42 Creatinine 0.78 mg/dL (0.60-1.20) 01/19/18 14:42 Est GFR ( Amer) > 60 (> 60) 01/19/18 14:42 Est GFR (Non-Af Amer) > 60 (> 60) 01/19/18 14:42 BUN/Creatinine Ratio 10 (6-26) 01/19/18 14:42 Glucose 128 mg/dL (70-105) H 01/19/18 14:42 Calculated Osmolality 284 (280-300) 01/19/18 14:42 Calcium 9.4 mg/dL (8.6-10.3) 01/19/18 14:42 Urine Color Yellow (Yellow) 01/19/18 14:41 Urine Clarity Clear (Clear) 01/19/18 14:41 Urine pH 6.0 pH Units (5.0-8.0) 01/19/18 14:41 Ur Specific Crum 1.012 (1.010-1.025) 01/19/18 14:41 Urine Protein Negative mg/dL (Neg-Trace) 01/19/18 14:41 Urine Glucose (UA) Normal mg/dL (Normal) 01/19/18 14:41 Urine Clinitest TNP 01/19/18 14:41 Urine Ketones Negative mg/dL (Negative) 01/19/18 14:41 Urine Blood Negative (Negative) 01/19/18 14:41 Urine Nitrite Negative (Negative) 01/19/18 14:41 Urine Bilirubin Negative (Negative) 01/19/18 14:41 Urine Urobilinogen Normal mg/dL (Normal) 01/19/18 14:41 Ur Leukocyte Esterase Negative (Negative) 01/19/18 14:41 Urine Microscopic RBC 0-3 per hpf (0-3) 01/19/18 14:41 Urine Microscopic WBC 3-5 per hpf (0-3) H 01/19/18 14:41 Ur Squamous Epith Cells Many per lpf (None-Few) H 01/19/18 14:41 Urine Bacteria Few per hpf (None-Few) 01/19/18 14:41 Hyaline Casts None Seen per lpf (None-Few) 01/19/18 14:41 Urine Test Negative (Negative) 01/19/18 14:41 Salicylates < 2.5 mg/dL (15.0-30.0) L 01/19/18 14:42 Urine Opiates Screen Negative ng/mL (Lcjrjf=651) 01/19/18 14:41 Acetaminophen < 10 mcg/mL (10-20) L 01/19/18 14:42 Ur Barbiturates Screen Negative ng/mL (Gryjml=880) 01/19/18 14:41 Ur Phencyclidine Scrn Negative ng/mL (Cutoff=25) 01/19/18 14:41 Ur Amphetamines Screen Negative ng/mL (Qrgwtp=9811) 01/19/18 14:41 U Benzodiazepines Scrn Negative ng/mL (Szdgyv=679) 01/19/18 14:41 Urine Cocaine Screen Negative ng/mL (Cutoff= 300) 01/19/18 14:41 U Marijuana (THC) Screen Negative ng/mL (Cutoff = 50) 01/19/18 14:41 Ur Drug Screen Interp See Below 01/19/18 14:41 Ethyl Alcohol 12 mg/dL (Less than 10) H 01/19/18 14:42 Assessment and Plan (1) Homicidal ideation Current visit: Yes Status: Acute Plan: Admit inpatient for safety and stabilization, Close observation, Suicide Precautions per unit protocol, Encourage participation in unit milieu, Group Therapy, Monitor sleep, Monitor appetite, Family/Supportive other meeting Additional Plan: continue close observation. Risks, benefits, side effects, alternatives discussed w/pt: Yes Patient agreeable to treatment: Yes Plans for Post Hospital Care: at Home (2) Suicidal ideation Current visit: Yes Status: Acute Plan: Admit inpatient for safety and stabilization, Close observation, Suicide Precautions per unit protocol, Encourage participation in unit milieu, Group Therapy, Monitor sleep, Monitor appetite, Family/Supportive other meeting Risks, benefits, side effects, alternatives discussed w/pt: Yes Patient agreeable to treatment: Yes Plans for Post Hospital Care: at Home Estimated Length of Stay (Days): 5 (3) Major depression, recurrent Current visit: No Status: Acute Plan: Admit inpatient for safety and stabilization, Close observation, Suicide Precautions per unit protocol, Encourage participation in unit milieu, Group Therapy, Monitor sleep, Monitor appetite, Family/Supportive other meeting Risks, benefits, side effects, alternatives discussed w/pt: Yes Patient agreeable to treatment: Yes Plans for Post Hospital Care: at Home Qualifiers: Active/Remission status: currently active Major depression episode severity : severe Psychotic features: with psychotic features Qualified Code(s): F33.3 - Major depressive disorder, recurrent, severe with psychotic symptoms
[2018-01-20] MEDS: Topiramate 25 MG CAP.SPRINK PO SCH (11:24)
[2018-01-20] MEDS: ARIPiprazole 5 MG TABLET PO SCH (20:48)
[2018-01-20] MEDS: (Loxapine Succinate [Loxapine] 10 MG) PO SCH (22:56)
[2018-01-21] MEDS: Cholecalciferol (D-3) 1,000 UNIT TABLET PO SCH (08:43)
[2018-01-21] MEDS: Topiramate 25 MG CAP.SPRINK PO SCH (08:43)
[2018-01-21] MEDS: Loratadine 10 MG TABLET PO SCH (08:43)
--- NOTE | 2018-01-21 09:38 | Psychiatry Progress Note ---
Date of Encounter: 01/21/18 Time of Encounter: 09:20 Subjective Interval history: Patient seen today , case d/w treatment team , she remains same but her moods better as per team, has been compliant withher treatment. Patient is soft spoken and cooperative, morbidly obese female states i am good , slept better and no nightmares, she is not as depress and suicidal thoughts come and go, denies homicidal ideation , voices also come and go . she has minimal eye contact , denies side effects. AIMS 0 Review of Systems Psychiatric: Reports: depression, abnormal sleep pattern, suicidal ideation, homicidal ideation, auditory hallucinations, difficulty concentrating Results - Vital Signs Vital Signs: Temp Pulse Resp BP Pulse Ox 98.5 F 93 18 131/87 92 01/20/18 20:04 01/20/18 20:04 01/20/18 20:04 01/20/18 20:04 01/19/18 14:03 Assessment and Plan (1) Homicidal ideation Current visit: Yes Status: Acute Risks, benefits, side effects, alternatives discussed w/pt: Yes Patient agreeable to treatment: Yes (2) Suicidal ideation Current visit: Yes Status: Acute Risks, benefits, side effects, alternatives discussed w/pt: Yes Patient agreeable to treatment: Yes (3) Major depression, recurrent Current visit: No Status: Acute Risks, benefits, side effects, alternatives discussed w/pt: Yes Patient agreeable to treatment: Yes Qualifiers: Active/Remission status: currently active Major depression episode severity : severe Psychotic features: with psychotic features Qualified Code(s): F33.3 - Major depressive disorder, recurrent, severe with psychotic symptoms Consult Discharge Plan - Plan Referrals: [facility] [Outside] - 01/28/18 1:00 pm (The above appointment is with Katy Dhillon for outpatient mental health counseling services. You will also see Yamila Delgado for outpatient psychiatric assessment and medication management services on 03/11/2018 at 1:00 PM. The above appointments reflect first availability. You may contact the office regularly to check for cancellations that may like to be seen sooner.) Psychiatry Exam - Constitutional Vitals: Temp Pulse Resp BP Pulse Ox 98.5 F 93 18 131/87 92 01/20/18 20:04 01/20/18 20:04 01/20/18 20:04 01/20/18 20:04 01/19/18 14:03 General appearance: obese - Musculoskeletal Gait: slow Station: other Strength & Tone: normal for patient - Psychiatric Patient Orientation: Yes Person, Yes Time, Yes Place Level of alertness: Alert Behavior: cooperative, withdrawn Psychomotor activity: Slowed Eye Contact: Minimal Contact Mood Description: Depressed, Anxious Affect description: congruent with mood Speech Volume: Soft/Quiet Speech pattern: slowed Language & Vocabulary: consistent with education Thought Process: Slowed Thinking Thought Content: Yes Suicidal ideation Perceptual Disturbances: Yes Auditory hallucinations Attention Span Ability: Unable to Sustain Attention Memory Description: Grossly Intact Patient Reliability: Reliable Historian Fund of knowledge: Yes below average Intelligence Estimate: Below Average Judgment: Limited Insight: Partial
[2018-01-21] MEDS: (Loxapine Succinate [Loxapine] 10 MG) PO SCH (20:16)
[2018-01-21] MEDS: ARIPiprazole 5 MG TABLET PO SCH (20:16)
[2018-01-22] MEDS: Topiramate 25 MG CAP.SPRINK PO SCH (08:20)
[2018-01-22] MEDS: Loratadine 10 MG TABLET PO SCH (08:21)
[2018-01-22] MEDS: Cholecalciferol (D-3) 1,000 UNIT TABLET PO SCH (08:21)
--- NOTE | 2018-01-22 11:49 | Psychiatry Progress Note ---
Date of Encounter: 01/22/18 Time of Encounter: 11:25 Subjective Interval history: Patient seen today , chart reviewed , case d/w staff patient has shown improvement, she agreed today they she was not compliant with medications and therefore was depress and suicidal. she at present denies suicidal ideation but has blunt affect and depression improving as per her , she denies any psychosis at present, sleep is improving. denies side effects. will continue same rx plan ,. Review of Systems Psychiatric: Reports: depression, abnormal sleep pattern, auditory hallucinations, difficulty concentrating Results - Vital Signs Vital Signs: Temp Pulse Resp BP Pulse Ox 96.9 F L 87 20 130/85 92 01/22/18 09:00 01/22/18 09:00 01/22/18 09:00 01/22/18 09:00 01/19/18 14:03 Assessment and Plan (1) Homicidal ideation Current visit: Yes Status: Acute Risks, benefits, side effects, alternatives discussed w/pt: Yes Patient agreeable to treatment: Yes (2) Suicidal ideation Current visit: Yes Status: Acute Risks, benefits, side effects, alternatives discussed w/pt: Yes Patient agreeable to treatment: Yes (3) Major depression, recurrent Current visit: No Status: Acute Risks, benefits, side effects, alternatives discussed w/pt: Yes Patient agreeable to treatment: Yes Qualifiers: Active/Remission status: currently active Major depression episode severity : severe Psychotic features: with psychotic features Qualified Code(s): F33.3 - Major depressive disorder, recurrent, severe with psychotic symptoms Consult Discharge Plan - Plan Referrals: [facility] [Outside] - 01/28/18 1:00 pm (The above appointment is with Katy Dhillon for outpatient mental health counseling services. You will also see Yamila Delgado for outpatient psychiatric assessment and medication management services on 03/11/2018 at 1:00 PM. The above appointments reflect first availability. You may contact the office regularly to check for cancellations that may like to be seen sooner.) Psychiatry Exam - Constitutional Vitals: Temp Pulse Resp BP Pulse Ox 96.9 F L 87 20 130/85 92 01/22/18 09:00 01/22/18 09:00 01/22/18 09:00 01/22/18 09:00 01/19/18 14:03 General appearance: malodorous, obese - Musculoskeletal Gait: slow Station: other Strength & Tone: normal for patient - Psychiatric Patient Orientation: Yes Person, Yes Time, Yes Place Level of alertness: Alert Behavior: cooperative Psychomotor activity: Slowed Eye Contact: Maintains Eye Contact Mood Description: Depressed Affect description: blunted Speech Volume: Soft/Quiet Speech pattern: slowed Language & Vocabulary: limited Thought Process: Slowed Thinking Thought Content: Yes Preoccupation Perceptual Disturbances: No Auditory hallucinations, No Visual hallucinations Attention Span Ability: Capable of Focused Attention Memory Description: Grossly Intact Patient Reliability: Questionable Historian Fund of knowledge: Yes below average Intelligence Estimate: Below Average Judgment: Limited Insight: Partial
[2018-01-22] MEDS: ARIPiprazole 5 MG TABLET PO SCH (20:26)
[2018-01-22] MEDS: (Loxapine Succinate [Loxapine] 10 MG) PO SCH (21:52)
[2018-01-23] MEDS: Loratadine 10 MG TABLET PO SCH (09:04)
[2018-01-23] MEDS: Topiramate 25 MG CAP.SPRINK PO SCH (09:05)
[2018-01-23] MEDS: Cholecalciferol (D-3) 1,000 UNIT TABLET PO SCH (09:05)
--- NOTE | 2018-01-23 10:23 | Psychiatry Progress Note ---
Date of Encounter: 01/23/18 Time of Encounter: 10:00 Subjective Interval history: ID the patient is a 28-year-old white female. The patient is under an involuntary hold Chief complaints I want to go home, I do not hear any voices. History of present illness: The patient was admitted under a duty to protect provision of the revised code. [id number]. The patient had a plan to kill her boyfriend. His name is Alexis. He is an unidentified person. She says that he goes to the [employer] to preach. Her Emiliano the patient heard voices to tell her to set him on fire. The patient denies that she has access to [facility] matches explosives incendiary devices or gasoline. She denies that she has a plan to kill Alexis. She reports that she heard the voice of her uncle. This is the brother of her stepfather. She hears this as an evil voice and it was this evil voice that was telling her to do that and she says that the voice is now gone. The patient says that she has 3 dogs at home she would like to be with talks. The patient has reported that she is free of side effects. She feels that she can go home. However the [place] revised code requires aced face evaluation and a progress note to document that the patient no longer has suicidal ideation towards a known person. I explained this to the patient. She remains under involuntary hospitalization. I also discussed long-acting injectable forms of aripiprazole. She said that she would not consider this at this time and she did not like injections. However she is an obese female and may benefit from deltoid injection of one of the medications. Her family watches over her medicines. However this is the first hospitalization with an antipsychotic added to the antidepressants. Therefore the diagnosis of major depressive disorder recurrent severe with psychosis as being given. Review of Systems Psychiatric: Reports: depression, abnormal sleep pattern, suicidal ideation, homicidal ideation, auditory hallucinations, difficulty concentrating Results - Vital Signs Vital Signs: Temp Pulse Resp BP Pulse Ox 97.5 F L 91 20 138/86 92 01/23/18 09:00 01/23/18 09:00 01/23/18 09:00 01/23/18 09:00 01/19/18 14:03 Assessment and Plan (1) Severe recurrent major depressive disorder with psychotic symptoms Current visit: Yes Status: Acute Plan: Continue hospitalization, Close observation, Suicide Precautions per unit protocol, Encourage participation in unit milieu, Group Therapy, Family/ Supportive other meeting Risks, benefits, side effects, alternatives discussed w/pt: Yes Patient agreeable to treatment: Yes (2) Suicidal ideation Current visit: Yes Status: Acute Plan: Continue hospitalization, Group Therapy, Monitor sleep, Monitor appetite, Secure weapons, Family/Supportive other meeting Risks, benefits, side effects , alternatives discussed w/pt: Yes Patient agreeable to treatment: Yes (3) Major depression, recurrent Current visit: No Status: Acute Plan: Continue hospitalization, Close observation, Encourage participation in unit milieu, Secure weapons Risks, benefits, side effects, alternatives discussed w/pt: Yes Patient agreeable to treatment: Yes Qualifiers: Active/Remission status: currently active Major depression episode severity : severe Psychotic features: with psychotic features Qualified Code(s): F33.3 - Major depressive disorder, recurrent, severe with psychotic symptoms (4) Homicidal ideation Current visit: Yes Status: Acute Plan: Continue hospitalization, Close observation, Suicide Precautions per unit protocol, Encourage participation in unit milieu, Secure weapons, Family/ Supportive other meeting Risks, benefits, side effects, alternatives discussed w/pt: Yes Patient agreeable to treatment: Yes Consult Discharge Plan - Plan Referrals: [facility] [Outside] - 01/28/18 1:00 pm (The above appointment is with Katy Dhillon for outpatient mental health counseling services. You will also see Yamila Delgado for outpatient psychiatric assessment and medication management services on 03/11/2018 at 1:00 PM. The above appointments reflect first availability. You may contact the office regularly to check for cancellations that may like to be seen sooner.) Psychiatry Exam - Constitutional Vitals: Temp Pulse Resp BP Pulse Ox 97.5 F L 91 20 138/86 92 01/23/18 09:00 01/23/18 09:00 01/23/18 09:00 01/23/18 09:00 01/19/18 14:03 General appearance: unkempt, obese - Musculoskeletal Gait: slow Station: other Strength & Tone: normal for patient - Psychiatric Patient Orientation: Yes Person, Yes Time, Yes Place, Yes Circumstance Level of alertness: Alert Behavior: calm Psychomotor activity: Slowed Eye Contact: Maintains Eye Contact Mood Description: Other Affect description: incongruent with mood Speech Volume: Soft/Quiet Speech pattern: impoverished Language & Vocabulary: limited Thought Process: Intact, Logical Thought Content: Yes Suicidal ideation, Yes Homicidal ideation Perceptual Disturbances: Yes Auditory hallucinations Attention Span Ability: Capable of Sustained Attention Memory Description: Immediate Intact, Recent Impaired, Remote Impaired Patient Reliability: Not Reliable Historian Fund of knowledge: Yes below average Intelligence Estimate: Below Average Judgment: Limited Insight: Minimal
[2018-01-23] MEDS: ARIPiprazole 5 MG TABLET PO SCH (20:05)
[2018-01-24] MEDS: Topiramate 25 MG CAP.SPRINK PO SCH (09:28)
[2018-01-24] MEDS: Loratadine 10 MG TABLET PO SCH (09:28)
[2018-01-24] MEDS: Cholecalciferol (D-3) 1,000 UNIT TABLET PO SCH (09:28)
--- NOTE | 2018-01-24 11:07 | Psychiatry Progress Note ---
Date of Encounter: 01/24/18 Time of Encounter: 11:00 Subjective Interval history: ID: 28 you W female. CC: I like to do groups. HPI: patient to her mother yesterday. She spoke to Alexis on the phone. She says that she has not heard the voice of her uncle. She last heard the voice of her uncle on January 19. She reports that she has not heard it since then. She says "I not kill him anymore". No visitors expected today. No side effects to medications. Review of Systems Psychiatric: Reports: depression, abnormal sleep pattern, suicidal ideation, difficulty concentrating Results - Vital Signs Vital Signs: Temp Pulse Resp BP Pulse Ox 97.0 F L 93 16 128/79 92 01/24/18 09:00 01/24/18 09:00 01/24/18 09:00 01/24/18 09:00 01/19/18 14:03 Assessment and Plan (1) Severe recurrent major depressive disorder with psychotic symptoms Current visit: Yes Status: Acute Plan: Close observation, Suicide Precautions per unit protocol, Encourage participation in unit milieu Risks, benefits, side effects, alternatives discussed w/pt: Yes Patient agreeable to treatment: Yes (2) Suicidal ideation Current visit: Yes Status: Acute Plan: Secure weapons Risks, benefits, side effects, alternatives discussed w/ pt: Yes Patient agreeable to treatment: Yes (3) Major depression, recurrent Current visit: No Status: Acute Plan: Continue hospitalization, Group Therapy, Monitor sleep, Monitor appetite Risks, benefits, side effects, alternatives discussed w/pt: Yes Patient agreeable to treatment: Yes Qualifiers: Active/Remission status: currently active Major depression episode severity : severe Psychotic features: with psychotic features Qualified Code(s): F33.3 - Major depressive disorder, recurrent, severe with psychotic symptoms (4) Homicidal ideation Current visit: Yes Status: Acute Plan: Secure weapons, Family/Supportive other meeting Risks, benefits, side effects, alternatives discussed w/pt: Yes Patient agreeable to treatment: Yes Consult Discharge Plan - Plan Referrals: [facility] [Outside] - 01/28/18 1:00 pm (The above appointment is with Katy Dhillon for outpatient mental health counseling services. You will also see Yamila Delgado for outpatient psychiatric assessment and medication management services on 03/11/2018 at 1:00 PM. The above appointments reflect first availability. You may contact the office regularly to check for cancellations that may like to be seen sooner.) Psychiatry Exam - Constitutional Vitals: Temp Pulse Resp BP Pulse Ox 97.0 F L 93 16 128/79 92 01/24/18 09:00 01/24/18 09:00 01/24/18 09:00 01/24/18 09:00 01/19/18 14:03 General appearance: age & developmentally appropriate, disheveled, obese - Musculoskeletal Gait: normal Strength & Tone: normal for patient - Psychiatric Patient Orientation: Yes Person, Yes Time, Yes Place, Yes Circumstance Level of alertness: Alert Behavior: cooperative Psychomotor activity: Slowed Eye Contact: Minimal Contact Mood Description: Depressed Affect description: dysphoric Speech Volume: Normal Speech pattern: normal rate Language & Vocabulary: consistent with education Thought Process: Intact Thought Content: Yes Intact Perceptual Disturbances: Yes Reacting to internal stimuli Attention Span Ability: Capable of Sustained Attention Memory Description: Immediate Intact Fund of knowledge: Yes below average Intelligence Estimate: Below Average Judgment: Limited Insight: Minimal
[2018-01-24] MEDS: traZODone 50 MG TABLET PO PRN (20:35)
[2018-01-24] MEDS: ARIPiprazole 5 MG TABLET PO SCH (20:35)
[2018-01-25] MEDS: Cholecalciferol (D-3) 1,000 UNIT TABLET PO SCH (08:19)
[2018-01-25] MEDS: Topiramate 25 MG CAP.SPRINK PO SCH (08:20)
[2018-01-25] MEDS: Loratadine 10 MG TABLET PO SCH (08:20)
[2018-01-25 09:29] VITALS: BP 121/77
--- NOTE | 2018-01-25 11:15 | Discharge Summary ---
Date of Encounter: 01/25/18 Time of Encounter: 11:11 Diagnosis - Discharge Diagnosis (1) Severe recurrent major depressive disorder with psychotic symptoms Status: Acute Medications - Discharge Medications Prescriptions: ARIPiprazole [Abilify] 5 mg PO HS #30 tablet Topiramate [Topamax] 25 mg PO DAILY #30 cap.sprink Levothyroxine [Synthroid] 125 mcg PO QAM 10/29/15 [History] Loratadine [Allergy Relief] 10 mg PO DAILY 05/26/17 [History] Norelgestromin/Ethin.estradiol [Xulane Patch] 1 patch TD QWEEK 05/26/17 [History ] Pantoprazole Sodium 40 mg PO DAILY 05/26/17 [History] Sertraline [Zoloft] 200 mg PO DAILY 05/26/17 [History] Loxapine Succinate [Loxapine] 10 mg PO HS 10/16/17 [History] Cholecalciferol (D-3) [Vitamin D] 1,000 unit PO DAILY #14 tablet 10/19/17 [Rx] Prazosin HCl [Minipress] 2 mg PO BID 01/19/18 [History] hydrOXYzine pamoate [HydrOXYzine Pamoate] 50 mg PO QID PRN 01/19/18 [History] ARIPiprazole [Abilify] 5 mg PO HS #30 tablet 01/25/18 [Rx] Topiramate [Topamax] 25 mg PO DAILY #30 cap.sprink 01/25/18 [Rx] 3 Allergy/AdvReac Type Severity Reaction Status Date / Time No Known Allergies Allergy Verified 01/19/18 16:45 Results Procedures and tests throughout hospitalization: Completed Lab Orders Category Date Time Status Thyroid Stimulating Hormone Routine Lab 01/21/18 10:05 Completed Provider Date of admission: 01/19/18 16:45 Primary care physician: PCP NONE Discharging clinician: Aldo Echeverria Psychiatry Exam - Constitutional Vitals: Temp Pulse Resp BP Pulse Ox 97.5 F L 91 20 121/77 92 01/25/18 09:00 01/25/18 09:00 01/25/18 09:00 01/25/18 09:00 01/19/18 14:03 General appearance: age & developmentally appropriate, well-groomed, well- nourished, obese - Musculoskeletal Gait: normal Station: relaxed Strength & Tone: normal for patient - Psychiatric Patient Orientation: Yes Person, Yes Time, Yes Place Level of alertness: Alert Behavior: calm, cooperative Psychomotor activity: Normal Eye Contact: Maintains Eye Contact Mood Description: Euthymic/stable Affect description: congruent with mood, full range Speech Volume: Normal Speech pattern: normal rate, normal rhythm, normal tone, fluent, spontaneous Language & Vocabulary: consistent with education Thought Process: Linear, Goal Oriented Thought Content: No Suicidal ideation, No Homicidal ideation, No Overt delusions Perceptual Disturbances: No Auditory hallucinations, No Visual hallucinations Attention Span Ability: Capable of Focused Attention Memory Description: Grossly Intact Patient Reliability: Reliable Historian Fund of knowledge: Yes abstraction ability, Yes below average, Yes aware of current events Intelligence Estimate: Below Average Judgment: Limited Insight: Minimal Hospital Course Hospital course: Ms. Chavarria is a 28 year old female admitted for recurrent major depression with psychotic features and having suicidal and homicidal ideation and auditory hallucinations. For details of the admission please see H&P. On the units patient was started on her medication including laxapine and Abilify was increased from 2 mg to 5 mg and Zoloft 200 mg in addition to other medication. Patient participated in activities and groups, she was cooperative and medication compliant. She reported hearing voices initially, prior to discharge she denied hearing any voices she denies suicidal or homicidal ideation and was anxious to be discharged to see her dog. On discharge patient was medically stable nonsuicidal or homicidal, not psychotic tolerating medication was out any side effects. Aware of her follow-up appointments. Discharge plans and appointments were completed by social work. Patient is discharged in stable condition. - Time Spent with Patient Total time spent providing and/or coordinating discharge services: Less than 30 minutes Assessment and Plan - Patient/Caregiver Discharge Instructions Activity: resume usual activities as tolerated Diet: regular diet - Follow up Plan Follow up with: [facility] [Outside] - 01/28/18 1:00 pm (The above appointment is with Katy Dhillon for outpatient mental health counseling services. You will also see Yamila Delgado for outpatient psychiatric assessment and medication management services on 03/11/2018 at 1:00 PM. The above appointments reflect first availability. You may contact the office regularly to check for cancellations that may like to be seen sooner.) Functional capacity at discharge: independent ambulation Overall status at discharge: Stable Disposition: Home, Self-Care Quality - Multiple Antipsychotics Patient discharged on 2 or more antipsychotic medications: Yes (Poor response to monotherapy) - Justification Documentation of: History 3 failed trials of monotherapy Procedures - Procedures Procedures: Medication Management, Crisis Stabilization, Supportive Therapy, Group Therapy, Psychoeducational Therapy
== END 2018-01-25 12:28 | disposition home or self-care (01) | DRG 751 ==
LOC: EMEROO 14:00 → SUATTDRO 16:45 → 1ANU 16:45
PROVIDERS: ADMIT Psychiatry & Neurology Psychiatry; ATTEND Psychiatry & Neurology Psychiatry

== ENCOUNTER 2018-03-17 15:39 | Inpatient (IN) ==
--- NOTE | 2018-03-17 15:56 | Emergency Department Note ---
Disposition Clinical Impression: Depression Qualifiers: Depression Type: unspecified Qualified Code(s): F32.9 - Major depressive disorder, single episode, unspecified Disposition: Admitted As Inpatient Condition: Good Referrals: NONE,PCP [Primary Care Provider] - Forms: ED Satisfaction Letter Psych HPI - General Chief Complaint: ED Psychiatric Symptoms Stated Complaint: SI Time Seen by Provider: 03/17/18 15:45 Source: patient Mode of arrival: private vehicle Limitations: no limitations Nursing Notes Reviewed: Yes Vital Signs Reviewed: Yes - History of Present Illness HPI Narrative: 28-year-old female with a history of depression presenting due to thoughts of hurting herself and worsening depression. States that she was prescribed Zoloft and they increased the dose in February however she thinks her depression is worsening and she has had thoughts of cutting herself. Denies a prior history of injuring herself. Denies any homicidal thoughts. No anxiety. No hallucinations. Otherwise no recent illnesses. No other complaints. Pt complaint: suicidal ideation History of similar episodes: No Improves with: none Worsens with: none Alleged intoxication: No Associated Psychiatric Symptoms: depression, other (Self injury) Associated symptoms: Reports: denies other symptoms Traumatic symptoms: denies traumatic injury Treatments prior to arrival: none Self harm or harm to others: admits thoughts of self harm, has plan (Wants to cut herself) - Related Data Home Medications Medication Instructions Recorded Confirmed Levothyroxine [Synthroid] 125 mcg PO QAM 10/29/15 01/19/18 Loratadine [Allergy Relief] 10 mg PO DAILY 05/26/17 01/19/18 Norelgestromin/Ethin.estradiol 1 patch TD QWEEK 05/26/17 01/19/18 [Xulane Patch] Pantoprazole Sodium 40 mg PO DAILY 05/26/17 01/19/18 Sertraline [Zoloft] 200 mg PO DAILY 05/26/17 01/19/18 Loxapine Succinate [Loxapine] 10 mg PO HS 10/16/17 01/19/18 Prazosin HCl [Minipress] 2 mg PO BID 01/19/18 01/19/18 hydrOXYzine pamoate [HydrOXYzine 50 mg PO QID PRN 01/19/18 01/19/18 Pamoate] Previous Rx's Medication Instructions Recorded Cholecalciferol (D-3) [Vitamin D] 1,000 unit PO DAILY #14 tablet 10/19/17 ARIPiprazole [Abilify] 5 mg PO HS #30 tablet 01/25/18 Topiramate [Topamax] 25 mg PO DAILY #30 cap.sprink 01/25/18 Allergies Allergy/AdvReac Type Severity Reaction Status Date / Time No Known Allergies Allergy Verified 03/17/18 15:47 All systems ED: reviewed and negative except as stated. Cardiovascular: Denies: chest pain Respiratory: Denies: dyspnea Gastrointestinal: Denies: abdominal pain Musculoskeletal: Denies: back pain, neck pain Neurological: Denies: headache Psychiatric: Reports: depression. Denies: anxiety, homicidal thoughts, auditory hallucinations, visual hallucinations Past Medical History - Past Medical History Attestation: Yes The following information was validated with the patient. 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 - Social History Smoking Status: Never smoker Smokeless Tobacco Status: No Alcohol use: Reports: none Drug use: Reports: none Physical Exam - General Limitations: no limitations General appearance: alert, in no apparent distress - Head Head exam: atraumatic, normocephalic - Eye Eye exam: Present: normal appearance - ENT ENT exam: normal exam - Neck Neck exam: Present: normal inspection - Chest Chest inspection: Present: normal inspection, symmetric chest wall rise - Respiratory Respiratory exam: Present: normal lung sounds bilaterally - Cardiovascular Cardiovascular exam: Present: regular rate, normal rhythm, normal heart sounds - Abdominal Exam Abdominal exam: Present: soft, Non-Tender. Absent: tenderness, distention, rigidity - Extremities Exam Extremities exam: Present: normal inspection, full ROM - Expanded Upper Extremity Exam Shoulder exam: Present: normal inspection, full ROM Arm exam: Present: normal inspection, full ROM Elbow exam: Present: normal inspection, full ROM Forearm/Wrist exam: Present: normal inspection, full ROM Hand exam: Present: normal inspection, full ROM - Expanded Lower Extremity Exam Hip/Pelvis exam: Present: normal inspection, full ROM Upper leg exam: Present: normal inspection, full ROM Knee exam: Present: normal inspection, full ROM Lower leg exam: Present: normal inspection, full ROM Ankle exam: Present: normal inspection, full ROM Foot/toe exam: Present: normal inspection, full ROM - Psychiatric Psychiatric exam: Present: depressed. Absent: homicidal ideation - Skin Skin exam: Present: warm, dry Course Course Narrative: Patient seen and examined. Vital signs reviewed. Plan for medical clearance for psychiatric evaluation. Vital Signs Temperature 98.6 F 03/17/18 15:46 Pulse Rate 99 03/17/18 15:46 Respiratory Rate 20 03/17/18 15:46 Blood Pressure 160/83 03/17/18 15:46 O2 Sat by Pulse Oximetry 95 03/17/18 15:46 Temperature 98.6 F 03/17/18 15:54 Pulse Rate 99 03/17/18 15:54 Respiratory Rate 20 03/17/18 15:54 Blood Pressure 160/83 03/17/18 15:54 O2 Sat by Pulse Oximetry 95 03/17/18 15:54 Oxygen Delivery Oxygen Delivery Room Air Psych - MDM Narrative Medical decision making narrative: 28-year-old female presenting with thoughts of self-injurious behavior and worsening depression despite being on medication. Patient was medically cleared here. She was evaluated by our psychiatric service who deemed her appropriate for inpatient management. - Lab Data Lab results reviewed: Yes I reviewed the patient's lab results. Result diagrams: 03/17/18 16:20 03/17/18 17:37 Lab Results 03/17/18 03/17/18 03/17/18 Range/Units 16:00 16:00 16:00 WBC (4.3-11.1) K/mcL RBC (3.82-4.97) M/mcL Hgb (11.5-15.4) g/dL Hct (35.3-44.9) % MCV (83.0-100.0) fL MCH (28.0-33.3) pg MCHC (31.6-35.5) g/dL RDW (11.5-14.5) % Plt Count (140-400) K/mcL MPV (9.4-12.4) fL Immature Gran % (0-4) % Seg Neutrophils % % Lymphocytes % % Monocytes % % Eosinophils % % Basophils % % Neutrophils # (1.6-8.9) K/mcL Lymphocytes # (0.6-4.6) K/mcL Monocytes # (0.0-1.3) K/mcL Eosinophils # (0.0-0.6) K/mcL Basophils # (0.0-0.2) K/mcL Sodium (136-145) mEq/L Potassium (3.5-5.1) mEq/L Chloride (98-107) mEq/L Carbon Dioxide (23-29) mEq/L BUN (6-20) mg/dL Creatinine (0.60-1.20) mg/dL Est GFR ( Amer) (> 60) Est GFR (Non-Af Amer) (> 60) BUN/Creatinine Ratio (6-26) Glucose (70-105) mg/dL Calculated Osmolality (280-300) Calcium (8.6-10.3) mg/dL Urine Color Yellow (Yellow) Urine Clarity Cloudy A (Clear) Urine pH 6.5 (5.0-8.0) pH Units Ur Specific [place] 1.011 (1.010-1.025) Urine Protein Negative (Neg-Trace) mg/dL Urine Glucose (UA) Normal (Normal) mg/dL Urine Ketones Negative (Negative) mg/dL Urine Blood Negative (Negative) Urine Nitrite Negative (Negative) Urine Bilirubin Negative (Negative) Urine Urobilinogen Normal (Normal) mg/dL Ur Leukocyte Esterase Trace H (Negative) Urine Microscopic RBC 0-3 (0-3) per hpf Urine Microscopic WBC 5-15 H (0-3) per hpf Ur Squamous Epith Cells Many H (None-Few) per lpf Urine Bacteria Moderate H (None-Few) per hpf Hyaline Casts None Seen (None-Few) per lpf Urine Test Negative (Negative) Salicylates (15.0-30.0) mg/dL Urine Opiates Screen Negative (Mquagj=002) ng/mL Acetaminophen (10-20) mcg/mL Ur Barbiturates Screen Negative (Ggicve=210) ng/mL Ur Phencyclidine Scrn Negative (Cutoff=25) ng/mL Ur Amphetamines Screen Negative (Hdrnsn=3979) ng/mL U Benzodiazepines Scrn Negative (Lnrqkd=259) ng/mL Urine Cocaine Screen Negative (Cutoff= 300) ng/mL U Marijuana (THC) Screen Negative (Cutoff = 50) ng/mL Ur Drug Screen Interp See Below Ethyl Alcohol (Less than 10) mg/dL Specimen Rejected 03/17/18 03/17/18 03/17/18 Range/Units 16:20 16:20 17:37 WBC 7.5 (4.3-11.1) K/mcL RBC 4.55 (3.82-4.97) M/mcL Hgb 12.7 (11.5-15.4) g/dL Hct 41.2 (35.3-44.9) % MCV 90.5 (83.0-100.0) fL MCH 27.9 L (28.0-33.3) pg MCHC 30.8 L (31.6-35.5) g/dL RDW 14.6 H (11.5-14.5) % Plt Count 207 (140-400) K/mcL MPV 9.1 L (9.4-12.4) fL Immature Gran % 0.3 (0-4) % Seg Neutrophils % 76.6 % Lymphocytes % 16.9 % Monocytes % 5.4 % Eosinophils % 0.7 % Basophils % 0.1 % Neutrophils # 5.7 (1.6-8.9) K/mcL Lymphocytes # 1.3 (0.6-4.6) K/mcL Monocytes # 0.4 (0.0-1.3) K/mcL Eosinophils # 0.1 (0.0-0.6) K/mcL Basophils # 0.0 (0.0-0.2) K/mcL Sodium 137 (136-145) mEq/L Potassium 3.9 (3.5-5.1) mEq/L Chloride 101 (98-107) mEq/L Carbon Dioxide 27 (23-29) mEq/L BUN 11 (6-20) mg/dL Creatinine 0.73 (0.60-1.20) mg/dL Est GFR ( Amer) > 60 (> 60) Est GFR (Non-Af Amer) > 60 (> 60) BUN/Creatinine Ratio 15 (6-26) Glucose 141 H (70-105) mg/dL Calculated Osmolality 286 (280-300) Calcium 9.1 (8.6-10.3) mg/dL Urine Color (Yellow) Urine Clarity (Clear) Urine pH (5.0-8.0) pH Units Ur Specific [place] (1.010-1.025) Urine Protein (Neg-Trace) mg/dL Urine Glucose (UA) (Normal) mg/dL Urine Ketones (Negative) mg/dL Urine Blood (Negative) Urine Nitrite (Negative) Urine Bilirubin (Negative) Urine Urobilinogen (Normal) mg/dL Ur Leukocyte Esterase (Negative) Urine Microscopic RBC (0-3) per hpf Urine Microscopic WBC (0-3) per hpf Ur Squamous Epith Cells (None-Few) per lpf Urine Bacteria (None-Few) per hpf Hyaline Casts (None-Few) per lpf Urine Test (Negative) Salicylates < 2.5 L (15.0-30.0) mg/dL Urine Opiates Screen (Kxlqtx=604) ng/mL Acetaminophen < 10 L (10-20) mcg/mL Ur Barbiturates Screen (Afqwvu=264) ng/mL Ur Phencyclidine Scrn (Cutoff=25) ng/mL Ur Amphetamines Screen (Aebawg=3815) ng/mL U Benzodiazepines Scrn (Klqekv=357) ng/mL Urine Cocaine Screen (Cutoff= 300) ng/mL U Marijuana (THC) Screen (Cutoff = 50) ng/mL Ur Drug Screen Interp Ethyl Alcohol < 10 (Less than 10) mg/dL Specimen Rejected Hemolyzed Psychiatric Medical Clearance - Medical Clearance Checklist Medical History: No Social History Section defined Current Vitals: Last Vital Signs Temp 98.6 F 03/17/18 15:54 Pulse 99 03/17/18 15:54 Resp 20 03/17/18 15:54 BP 160/83 03/17/18 15:54 Pulse Ox 95 03/17/18 15:54 Psychiatric Lab Panel: Drug Levels and Toxicity 03/17/18 03/17/18 16:00 17:37 Urine Opiates Screen Negative Acetaminophen < 10 L Ur Barbiturates Screen Negative Ur Phencyclidine Scrn Negative Ur Amphetamines Screen Negative U Benzodiazepines Scrn Negative Urine Cocaine Screen Negative U Marijuana (THC) Screen Negative Ethyl Alcohol < 10 Abnormal Labs: Abnormal lab results MCH 27.9 pg (28.0-33.3) L 03/17/18 16:20 MCHC 30.8 g/dL (31.6-35.5) L 03/17/18 16:20 RDW 14.6 % (11.5-14.5) H 03/17/18 16:20 MPV 9.1 fL (9.4-12.4) L 03/17/18 16:20 Glucose 141 mg/dL (70-105) H 03/17/18 17:37 Urine Clarity Cloudy (Clear) A 03/17/18 16:00 Ur Leukocyte Esterase Trace (Negative) H 03/17/18 16:00 Urine Microscopic WBC 5-15 per hpf (0-3) H 03/17/18 16:00 Ur Squamous Epith Cells Many per lpf (None-Few) H 03/17/18 16:00 Urine Bacteria Moderate per hpf (None-Few) H 03/17/18 16:00 Salicylates < 2.5 mg/dL (15.0-30.0) L 03/17/18 17:37 Acetaminophen < 10 mcg/mL (10-20) L 03/17/18 17:37 Statement of Medical Clearance: I have evaluated the patient, reviewed diagnostic information, and certify that the patient's medical condition is sufficiently stable that transfer to the psychiatric unit does not pose a significant risk of deterioration. Attestation Statement - Attestation Attestation: I, Andrew Hurtado, examined this patient and my medical decision-making was reviewed with the SUPERVISOR TILE AND MOTTLE/PA/Advanced Practice Nurse/Resident Physician. I agree with the documented findings, disposition and treatment plan as described except to the extent set forth below. 28-year-old female presents emergency Department with concerns of suicidal ideation and intent to self-harm. Patient states she has an urge to cut herself. Never had these feelings in the past. No suicide attempt in the past. Patient denies auditory or visual hallucinations. She states she has been increasingly stressed over the past week. Denies fever, chills, nausea, vomiting, chest pain, shortness breath. Patient will be medically cleared and evaluated by behavioral health.
[2018-03-17 16:24] LABS: Amphetamine Screen,Urine Negative ng/mL (Cutoff=1000); Barbiturate Screen,Urine Negative ng/mL (Cutoff=200); Benzodiazepines Screen,Urine Negative ng/mL (Cutoff=200); Cannabinoid Screen,Urine Negative ng/mL (Cutoff = 50); Cocaine Screen,Urine Negative ng/mL (Cutoff= 300); Opiate Screen,Urine Negative ng/mL (Cutoff=300); Phencyclidine Screen,Urine Negative ng/mL (Cutoff=25)
[2018-03-17 16:25] LABS: Bilirubin,Urine Negative (Negative); Blood,Urine Negative (Negative); Clarity,Urine Cloudy (Clear); Color,Urine Yellow (Yellow); Glucose,Urine (UA) Normal (Normal); Ketones,Urine Negative (Negative); Leukocyte Esterase,Urine Trace (Negative); Nitrite,Urine Negative (Negative); PH,Urine 6.5 pH Units (5.0-8.0); Protein,Urine Negative (Neg-Trace); Specific Gravity,Urine 1.011 (1.010-1.025); Urobilinogen,Urine Normal (Normal)
[2018-03-17 16:27] LABS: Bacteria,Urine Moderate per hpf (None-Few); Hyaline Casts,Urine None Seen per lpf (None-Few); Squamous Epithelial Cell,Urine Many per lpf (None-Few)
[2018-03-17 16:33] LABS: Basophils % 0.1 %; Eosinophils # 0.1 K/mcL (0.0-0.6); Eosinophils % 0.7 %; Hematocrit 41.2 % (35.3-44.9); Hemoglobin 12.7 g/dL (11.5-15.4); Immature Granulocytes % 0.3 % (0-4); Lymphocytes # 1.3 K/mcL (0.6-4.6); Lymphocytes % 16.9 %; Mean Corpuscular HGB Conc 30.8 g/dL (31.6-35.5); Mean Corpuscular Hemoglobin 27.9 pg (28.0-33.3); Mean Corpuscular Volume 90.5 fL (83.0-100.0); Mean Platelet Volume 9.1 fL (9.4-12.4); Monocytes # 0.4 K/mcL (0.0-1.3); Monocytes % 5.4 %; Neutrophils # 5.7 K/mcL (1.6-8.9); Platelet Count 207 K/mcL (140-400); Red Blood Count 4.55 M/mcL (3.82-4.97); Red Cell Distribution Width 14.6 % (11.5-14.5); Segmented Neutrophils % 76.6 %
[2018-03-17 16:41] LABS: RBC,Urine 0-3 per hpf (0-3)
[2018-03-17 18:27] LABS: Acetaminophen < 10 mcg/mL (10-20); BUN/Creatinine Ratio 15 (6-26); Blood Urea Nitrogen 11 mg/dL (6-20); Calcium 9.1 mg/dL (8.6-10.3); Carbon Dioxide 27 mEq/L (23-29); Chloride 101 mEq/L (98-107); Ethanol < 10 mg/dL (Less than 10); Glucose 141 mg/dL (70-105); Osmolality,Calculated 286 (280-300); Potassium 3.9 mEq/L (3.5-5.1); Salicylate < 2.5 mg/dL (15.0-30.0); Sodium 137 mEq/L (136-145); eGFR For Non-African Americans > 60 (> 60)
[2018-03-17] MEDS ORDERED: Mag Hydrox/Al Hydrox/Simeth 30 ML UDC PO PRN (20:19)
[2018-03-17] MEDS ORDERED: *HR* LORazepam 1 MG TABLET PO PRN (20:19)
[2018-03-17] MEDS ORDERED: Haloperidol Lactate 5 MG/ML VIAL IM PRN (20:19)
[2018-03-17] MEDS ORDERED: Acetaminophen 325 MG TABLET PO PRN (20:19)
[2018-03-17] MEDS ORDERED: *HR* LORazepam 2 MG/ML VIAL IM PRN (20:19)
[2018-03-17] MEDS ORDERED: MOM Conc 10 ML UD.LIQ PO PRN (20:19)
[2018-03-17] MEDS ORDERED: XULANE TP SCH (20:30)
[2018-03-17] MEDS: ARIPiprazole 5 MG TABLET PO SCH (21:24)
[2018-03-17] MEDS: hydrOXYzine pamoate 25 MG CAPSULE PO PRN (21:24)
[2018-03-17] MEDS: LOXAPINE 10 MG PO SCH (22:16)
[2018-03-18] MEDS: Cholecalciferol (D-3) 1,000 UNIT TABLET PO SCH (08:50)
[2018-03-18] MEDS: Loratadine 10 MG TABLET PO SCH (08:50)
[2018-03-18] MEDS: Topiramate 25 MG CAP.SPRINK PO SCH (08:50)
--- NOTE | 2018-03-18 10:51 | Psychiatry History & Physical ---
Date of Encounter: 03/18/18 Time of Encounter: 10:15 History of Present Illness Patient Stated Chief Complaint: i want to cut myself Medicare Admission Attestation: For traditional Medicare patients the provided hospital inpatient services are reasonable and necessary and in the case of services not specified as inpatient -only under 42 CFR 419.22 (n), that they are appropriately provided as inpatient services in accordance 42 CFR 412.3. For Critical Access Hospital the patient may reasonably be expected to be discharged or transferred to a hospital within 96 hours after admission to the Critical Access Hospital. Admitted From: Emergency Dept Plans for Post Hospital Care: Home History of Present Illness: Ms. Chavarria is a 28 year old female evaluated today , she came to ED with her mother as told her counsellor at her appointment that she wants to cut herself and she states i want frustration out. Patient has with extensive history of psychiatric illness with previous admissions 4 , last admission was in 10/30. , h/o developmental delay , depression , PTSD ,suicidal ideation and psychosis. The patient states that she has been not taking topamax as it made me mean , but taking all her medication. She denies any other injuries self injuries including cutting herself or taking any more medicines that she is supposed at this time. The patient does have a history of self injury. She frustrated , angry , depress and thoughts of cutting self, this time she denies a/v hallucinations but is paranoid denies drugs/cig/alcohol. she lives with her family, states she is upset and became loud when talking about her sister children are not behaved and patient feels she needs spanking. she has poor coping skills and does not know how to redirect her anger besides thoughts of cutting self. A/P patient need inpatient for stabilization of psychosis and suicidal/homicidal ideation. Past Med Surg Social Fam HX - Past Medical History Medical history: GERD, hypertension, thyroid disease, other - Past Psychiatric History Psychiatric history: Reports: anxiety, depression, previous psychiatric hospitalization Family psychiatric history: Yes Family History of Suicide: None - Past Surgical History Surgical History: cholecystectomy - Social History Smoking Status: Never smoker Smokeless Tobacco Status: No Alcohol use: none Drug use: none Occupational status: unemployed Current living situation: Home, With Family Activity Level: Independent ambulation Recent Out of Country Travel Within the Last 8 Weeks: No Exposure or Possible Exposure to Illness During Travel: No - Family History Father Adopted: No Family Member Ethnicity: Non- Living Status: Still Living Hx Family Cardiac Disorders: No Hx Family Respiratory Disorders: Yes (sleep apnea) Hx Family Cancer: No Hx Family GI Disorders: Yes (shot in stomach at age 18) Hx Family Endocrine Disorder: Yes Hx Family Neuromuscular Disorders: No Hx Family Neurologic Disorders: No Hx Family HEENT Disorders: No Hx Family Autoimmune Disorders: No Medications & Allergies Levothyroxine [Synthroid] 125 mcg PO QAM 10/29/15 [History] Loratadine [Allergy Relief] 10 mg PO DAILY 05/26/17 [History] Norelgestromin/Ethin.estradiol [Xulane Patch] 1 patch TD QWEEK 05/26/17 [History ] Pantoprazole Sodium 40 mg PO DAILY 05/26/17 [History] Sertraline [Zoloft] 200 mg PO DAILY 05/26/17 [History] Loxapine Succinate [Loxapine] 10 mg PO HS 10/16/17 [History] Cholecalciferol (D-3) [Vitamin D] 1,000 unit PO DAILY #14 tablet 10/19/17 [Rx] Prazosin HCl [Minipress] 2 mg PO BID 01/19/18 [History] hydrOXYzine pamoate [HydrOXYzine Pamoate] 50 mg PO QID PRN 01/19/18 [History] ARIPiprazole [Abilify] 5 mg PO HS #30 tablet 01/25/18 [Rx] Topiramate [Topamax] 25 mg PO DAILY #30 cap.sprink 01/25/18 [Rx] 3 Allergy/AdvReac Type Severity Reaction Status Date / Time No Known Allergies Allergy Verified 03/17/18 15:47 Review of Systems Constitutional: Denies: fever, chills, weakness, weight change Eyes: Denies: eye pain, vision change Ears, Nose, Throat: Denies: ear pain, throat pain, dental pain, hearing loss, congestion Cardiovascular: Denies: chest pain, palpitations, dyspnea on exertion Respiratory: Denies: cough, dyspnea, wheezes Gastrointestinal: Denies: abdominal pain, nausea, vomiting, diarrhea, constipation Genitourinary female: Denies: urgency, dysuria, frequency, abnormal menses, dyspareunia Musculoskeletal: Denies: joint swelling, joint pain Integumentary: Denies: rash, lesions, pruritus Neurological: Denies: headache, weakness, numbness, memory loss Psychiatric: Reports: depression, anxiety, suicidal ideation, irritability, mood swings Endocrine: Denies: fatigue, heat or cold intolerance Hematologic/Lymphatic: Denies: easy bruising, lymphadenopathy Allergic/Immunologic: Denies: urticaria, itchy eyes Exam - HEENT Head exam IM: Present: atraumatic Eye exam IM: Present: EOMI, normal appearance, PERRL ENT exam IM: Present: normal exam - Neurological Neurological exam: Present: CN II-XII intact - Respiratory Respiratory exam IM: Present: CTAB - GI/Abdominal GI/Abdominal exam IM: Present: normal bowel sounds, soft. Absent: tenderness - Extremities Extremities exam IM: Present: full ROM - Skin Skin exam IM: Present: dry, warm - Constitutional Vitals: Temp Pulse Resp BP Pulse Ox 98.1 F 85 16 130/81 95 03/18/18 09:00 03/18/18 09:00 03/18/18 09:00 03/18/18 09:00 03/17/18 15:54 General appearance: unkempt, disheveled, malodorous ( ), obese - Musculoskeletal Gait: slow Station: relaxed Strength & Tone: normal for patient - Psychiatric Patient Orientation: Yes Person, Yes Time, Yes Place Level of alertness: Alert Behavior: cooperative Psychomotor activity: Slowed Eye Contact: Maintains Eye Contact Mood Description: Depressed Affect description: constricted Speech Volume: Normal Speech pattern: coherent, slowed Language & Vocabulary: consistent with education Thought Process: Intact Thought Content: Yes Suicidal ideation, Yes Paranoid delusion Perceptual Disturbances: No Auditory hallucinations, No Visual hallucinations Attention Span Ability: Unable to Sustain Attention Memory Description: Grossly Intact Patient Reliability: Reliable Historian Fund of knowledge: Yes below average Intelligence Estimate: Below Average Judgment: Limited Insight: Partial Results - Labs Labs: Laboratory Last Values WBC 7.5 K/mcL (4.3-11.1) 03/17/18 16:20 RBC 4.55 M/mcL (3.82-4.97) 03/17/18 16:20 Hgb 12.7 g/dL (11.5-15.4) 03/17/18 16:20 Hct 41.2 % (35.3-44.9) 03/17/18 16:20 MCV 90.5 fL (83.0-100.0) 03/17/18 16:20 MCH 27.9 pg (28.0-33.3) L 03/17/18 16:20 MCHC 30.8 g/dL (31.6-35.5) L 03/17/18 16:20 RDW 14.6 % (11.5-14.5) H 03/17/18 16:20 Plt Count 207 K/mcL (140-400) 03/17/18 16:20 MPV 9.1 fL (9.4-12.4) L 03/17/18 16:20 Immature Gran % 0.3 % (0-4) 03/17/18 16:20 Seg Neutrophils % 76.6 % 03/17/18 16:20 Lymphocytes % 16.9 % 03/17/18 16:20 Monocytes % 5.4 % 03/17/18 16:20 Eosinophils % 0.7 % 03/17/18 16:20 Basophils % 0.1 % 03/17/18 16:20 Neutrophils # 5.7 K/mcL (1.6-8.9) 03/17/18 16:20 Lymphocytes # 1.3 K/mcL (0.6-4.6) 03/17/18 16:20 Monocytes # 0.4 K/mcL (0.0-1.3) 03/17/18 16:20 Eosinophils # 0.1 K/mcL (0.0-0.6) 03/17/18 16:20 Basophils # 0.0 K/mcL (0.0-0.2) 03/17/18 16:20 Sodium 137 mEq/L (136-145) 03/17/18 17:37 Potassium 3.9 mEq/L (3.5-5.1) 03/17/18 17:37 Chloride 101 mEq/L (98-107) 03/17/18 17:37 Carbon Dioxide 27 mEq/L (23-29) 03/17/18 17:37 BUN 11 mg/dL (6-20) 03/17/18 17:37 Creatinine 0.73 mg/dL (0.60-1.20) 03/17/18 17:37 Est GFR ( Amer) > 60 (> 60) 03/17/18 17:37 Est GFR (Non-Af Amer) > 60 (> 60) 03/17/18 17:37 BUN/Creatinine Ratio 15 (6-26) 03/17/18 17:37 Glucose 141 mg/dL (70-105) H 03/17/18 17:37 Calculated Osmolality 286 (280-300) 03/17/18 17:37 Calcium 9.1 mg/dL (8.6-10.3) 03/17/18 17:37 Urine Color Yellow (Yellow) 03/17/18 16:00 Urine Clarity Cloudy (Clear) A 03/17/18 16:00 Urine pH 6.5 pH Units (5.0-8.0) 03/17/18 16:00 Ur Specific [place] 1.011 (1.010-1.025) 03/17/18 16:00 Urine Protein Negative mg/dL (Neg-Trace) 03/17/18 16:00 Urine Glucose (UA) Normal mg/dL (Normal) 03/17/18 16:00 Urine Ketones Negative mg/dL (Negative) 03/17/18 16:00 Urine Blood Negative (Negative) 03/17/18 16:00 Urine Nitrite Negative (Negative) 03/17/18 16:00 Urine Bilirubin Negative (Negative) 03/17/18 16:00 Urine Urobilinogen Normal mg/dL (Normal) 03/17/18 16:00 Ur Leukocyte Esterase Trace (Negative) H 03/17/18 16:00 Urine Microscopic RBC 0-3 per hpf (0-3) 03/17/18 16:00 Urine Microscopic WBC 5-15 per hpf (0-3) H 03/17/18 16:00 Ur Squamous Epith Cells Many per lpf (None-Few) H 03/17/18 16:00 Urine Bacteria Moderate per hpf (None-Few) H 03/17/18 16:00 Hyaline Casts None Seen per lpf (None-Few) 03/17/18 16:00 Urine Test Negative (Negative) 03/17/18 16:00 Salicylates < 2.5 mg/dL (15.0-30.0) L 03/17/18 17:37 Urine Opiates Screen Negative ng/mL (Doxctn=443) 03/17/18 16:00 Acetaminophen < 10 mcg/mL (10-20) L 03/17/18 17:37 Ur Barbiturates Screen Negative ng/mL (Geejyj=718) 03/17/18 16:00 Ur Phencyclidine Scrn Negative ng/mL (Cutoff=25) 03/17/18 16:00 Ur Amphetamines Screen Negative ng/mL (Rfmgmx=2147) 03/17/18 16:00 U Benzodiazepines Scrn Negative ng/mL (Fcgdqh=698) 03/17/18 16:00 Urine Cocaine Screen Negative ng/mL (Cutoff= 300) 03/17/18 16:00 U Marijuana (THC) Screen Negative ng/mL (Cutoff = 50) 03/17/18 16:00 Ur Drug Screen Interp See Below 03/17/18 16:00 Ethyl Alcohol < 10 mg/dL (Less than 10) 03/17/18 17:37 Specimen Rejected Hemolyzed 03/17/18 16:20 Assessment and Plan (1) Suicidal ideation Current visit: No Status: Acute Plan: Admit inpatient for safety and stabilization, Close observation, Suicide Precautions per unit protocol, Encourage participation in unit milieu, Group Therapy, Monitor sleep, Monitor appetite, Family/Supportive other meeting Risks, benefits, side effects, alternatives discussed w/pt: Yes Patient agreeable to treatment: Yes Plans for Post Hospital Care: at Home (2) Severe recurrent major depressive disorder with psychotic symptoms Current visit: No Status: Acute Plan: Admit inpatient for safety and stabilization, Close observation, Suicide Precautions per unit protocol, Encourage participation in unit milieu, Group Therapy, Monitor sleep, Monitor appetite, Secure weapons, Family/Supportive other meeting Risks, benefits, side effects, alternatives discussed w/pt: Yes Patient agreeable to treatment: Yes Plans for Post Hospital Care: at Home
[2018-03-18] MEDS: hydrOXYzine pamoate 25 MG CAPSULE PO PRN (20:41)
[2018-03-18] MEDS: ARIPiprazole 5 MG TABLET PO SCH (20:41)
[2018-03-18] MEDS: LOXAPINE 10 MG PO SCH (20:43)
[2018-03-19] MEDS: Cholecalciferol (D-3) 1,000 UNIT TABLET PO SCH (08:54)
[2018-03-19] MEDS: Topiramate 25 MG CAP.SPRINK PO SCH (08:54)
[2018-03-19] MEDS: Loratadine 10 MG TABLET PO SCH (08:54)
--- NOTE | 2018-03-19 10:26 | Psychiatry Progress Note ---
Date of Encounter: 03/19/18 Time of Encounter: 10:00 Subjective Interval history: Patient seen today , case d/w treatment team. She remains dishelved, has not showered , slept well, appetite fine, suicidal thoughts are not there but remains down, states i am not ready to be out because i will do something like i will try to cut my self. she has not been having any a/v hallucination , but is somewhat paraoid. she still has thoughts of cutting self , will continue close monitoring . will dc topamax as she has not been taking it as it makes her agitated. will continue Abilfy and zoloft 200 mg as it was recently increased. Review of Systems Psychiatric: Reports: depression, anxiety, suicidal ideation, irritability, mood swings Results - Vital Signs Vital Signs: Temp Pulse Resp BP Pulse Ox 98 F 96 22 126/76 95 03/19/18 09:56 03/19/18 09:56 03/19/18 09:56 03/19/18 09:56 03/17/18 15:54 Assessment and Plan (1) Suicidal ideation Current visit: No Status: Acute Risks, benefits, side effects, alternatives discussed w/pt: Yes Patient agreeable to treatment: Yes (2) Severe recurrent major depressive disorder with psychotic symptoms Current visit: No Status: Acute Risks, benefits, side effects, alternatives discussed w/pt: Yes Patient agreeable to treatment: Yes Consult Discharge Plan - Plan Referrals: [facility] [Outside] - 04/01/18 12:30 pm (The above appointment is with Alix Gupta for outpatient mental luan counseling and case management services. You will also see Yamila Delgado for outpatient psychiatric assessment and medication management services on 05/13/2018 at 9:40 AM.) Psychiatry Exam - Constitutional Vitals: Temp Pulse Resp BP Pulse Ox 98 F 96 22 126/76 95 03/19/18 09:56 03/19/18 09:56 03/19/18 09:56 03/19/18 09:56 03/17/18 15:54 General appearance: obese - Musculoskeletal Gait: slow Station: other Strength & Tone: normal for patient - Psychiatric Patient Orientation: Yes Person, Yes Time, Yes Place Level of alertness: Alert Behavior: calm, cooperative Psychomotor activity: Slowed Eye Contact: Maintains Eye Contact Mood Description: Depressed, Anxious Affect description: congruent with mood Speech Volume: Normal Speech pattern: slowed Language & Vocabulary: consistent with education Thought Process: Intact Thought Content: Yes Suicidal ideation Perceptual Disturbances: No Auditory hallucinations, No Visual hallucinations Attention Span Ability: Capable of Focused Attention Memory Description: Grossly Intact Fund of knowledge: Yes below average Intelligence Estimate: Below Average Judgment: Limited Insight: Partial
[2018-03-19] MEDS: ARIPiprazole 5 MG TABLET PO SCH (20:58)
[2018-03-19] MEDS: LOXAPINE 10 MG PO SCH (22:55)
--- NOTE | 2018-03-20 09:54 | Psychiatry Progress Note ---
Date of Encounter: 03/20/18 Time of Encounter: 09:50 Subjective Interval history: Client admitted secondary to "wanting to cut myself." Still feels if she goes home she will do this. Familiar to this newspaper writer from past admissions. Seeks hospital support when not getting enough attention at home. Discussed positive coping skills today. Pleasant but lower functioning. States she is not ready to go home. "Maybe tomorrow. Maybe Thursday." Discussed committing to tomorrow and she is willing to do this. Discussed how it is not realistic to assume she will be cured when she leaves or that thoughts of self harm will never come back. Important thing is to develop a safety plan and to have positive coping skills to turn to. Client agreed to work on this today and plan for discharge tomorrow. Review of Systems Constitutional: Denies: fever, chills, weakness, weight change Eyes: Denies: eye pain, vision change Ears, Nose, Throat: Denies: ear pain, throat pain, dental pain, hearing loss, congestion Cardiovascular: Denies: chest pain, palpitations, dyspnea on exertion Respiratory: Denies: cough, dyspnea, wheezes Gastrointestinal: Denies: abdominal pain, nausea, vomiting, diarrhea, constipation Musculoskeletal: Denies: joint swelling, joint pain Neurological: Denies: headache, weakness, numbness, memory loss Psychiatric: Reports: depression, anxiety, suicidal ideation, irritability, mood swings Results - Vital Signs Vital Signs: Temp Pulse Resp BP Pulse Ox 98.6 F 94 18 108/80 95 03/19/18 21:00 03/19/18 21:00 03/19/18 21:00 03/19/18 21:00 03/17/18 15:54 Assessment and Plan (1) Major depression, recurrent Current visit: No Status: Acute Plan: Continue hospitalization, Close observation, Suicide Precautions per unit protocol, Encourage participation in unit milieu, Group Therapy, Monitor sleep, Monitor appetite Risks, benefits, side effects, alternatives discussed w/pt: Yes Patient agreeable to treatment: Yes Qualifiers: Active/Remission status: currently active Major depression episode severity : severe Psychotic features: with psychotic features Qualified Code(s): F33.3 - Major depressive disorder, recurrent, severe with psychotic symptoms Consult Discharge Plan - Plan Referrals: [facility] [Outside] - 04/01/18 12:30 pm (The above appointment is with Alix Gupta for outpatient mental luan counseling and case management services. You will also see Yamila Danny for outpatient psychiatric assessment and medication management services on 05/13/2018 at 9:40 AM.) Psychiatry Exam - Constitutional Vitals: Temp Pulse Resp BP Pulse Ox 98.6 F 94 18 108/80 95 03/19/18 21:00 03/19/18 21:00 03/19/18 21:00 03/19/18 21:00 03/17/18 15:54 General appearance: unkempt, obese - Musculoskeletal Gait: normal Station: relaxed Strength & Tone: normal for patient - Psychiatric Patient Orientation: Yes Person, Yes Time, Yes Place Level of alertness: Alert Behavior: calm, cooperative Psychomotor activity: Normal Eye Contact: Maintains Eye Contact Mood Description: Depressed Affect description: full range Speech Volume: Normal Speech pattern: normal rate, normal rhythm, normal tone, fluent, spontaneous Language & Vocabulary: consistent with education Thought Process: Linear, [place] Thought Content: No Suicidal ideation, No Homicidal ideation, No Overt delusions Perceptual Disturbances: No Auditory hallucinations, No Visual hallucinations Attention Span Ability: Capable of Focused Attention Memory Description: Grossly Intact Patient Reliability: Reliable Historian Fund of knowledge: Yes abstraction ability, Yes aware of current events Intelligence Estimate: Below Average Judgment: Limited Insight: Partial
[2018-03-20] MEDS: Loratadine 10 MG TABLET PO SCH (10:15)
[2018-03-20] MEDS: Cholecalciferol (D-3) 1,000 UNIT TABLET PO SCH (10:16)
[2018-03-20] MEDS: ARIPiprazole 5 MG TABLET PO SCH (21:01)
[2018-03-20] MEDS: hydrOXYzine pamoate 25 MG CAPSULE PO PRN (21:01)
[2018-03-20] MEDS: LOXAPINE 10 MG PO SCH (22:06)
[2018-03-21] MEDS: Loratadine 10 MG TABLET PO SCH (08:49)
[2018-03-21] MEDS: Cholecalciferol (D-3) 1,000 UNIT TABLET PO SCH (08:49)
[2018-03-21 09:58] VITALS: BP 125/84
--- NOTE | 2018-03-21 10:45 | Discharge Summary ---
Date of Encounter: 03/21/18 Time of Encounter: 10:43 Diagnosis - Discharge Diagnosis (1) Major depression, recurrent Status: Acute Qualifiers: Active/Remission status: currently active Major depression episode severity : severe Psychotic features: with psychotic features Qualified Code(s): F33.3 - Major depressive disorder, recurrent, severe with psychotic symptoms Medications - Discharge Medications Levothyroxine [Synthroid] 125 mcg PO QAM 10/29/15 [History] Loratadine [Allergy Relief] 10 mg PO DAILY 05/26/17 [History] Norelgestromin/Ethin.estradiol [Xulane Patch] 1 patch TD QWEEK 05/26/17 [History ] Pantoprazole Sodium 40 mg PO DAILY 05/26/17 [History] Sertraline [Zoloft] 200 mg PO DAILY 05/26/17 [History] Loxapine Succinate [Loxapine] 10 mg PO HS 10/16/17 [History] Cholecalciferol (D-3) [Vitamin D] 1,000 unit PO DAILY #14 tablet 10/19/17 [Rx] Prazosin HCl [Minipress] 2 mg PO BID 01/19/18 [History] hydrOXYzine pamoate [HydrOXYzine Pamoate] 50 mg PO QID PRN 01/19/18 [History] ARIPiprazole [Abilify] 5 mg PO HS #30 tablet 01/25/18 [Rx] Topiramate [Topamax] 25 mg PO DAILY #30 cap.sprink 01/25/18 [Rx] 3 Allergy/AdvReac Type Severity Reaction Status Date / Time No Known Allergies Allergy Verified 03/17/18 15:47 Provider Date of admission: 03/17/18 20:00 Primary care physician: PCP NONE Discharging clinician: Dafne Chadwick Psychiatry Exam - Constitutional Vitals: Temp Pulse Resp BP Pulse Ox 97.3 F L 98 16 125/84 95 03/21/18 09:00 03/21/18 09:00 03/21/18 09:00 03/21/18 09:00 03/17/18 15:54 General appearance: unkempt, obese - Musculoskeletal Gait: normal Station: relaxed Strength & Tone: normal for patient - Psychiatric Patient Orientation: Yes Person, Yes Time, Yes Place Level of alertness: Alert Behavior: calm, cooperative Psychomotor activity: Normal Eye Contact: Maintains Eye Contact Mood Description: Euthymic/stable Affect description: congruent with mood, full range Speech Volume: Normal Speech pattern: normal rate, normal rhythm, normal tone, fluent, spontaneous Language & Vocabulary: consistent with education Thought Process: Linear, Goal Oriented Thought Content: No Suicidal ideation, No Homicidal ideation, No Overt delusions Perceptual Disturbances: No Auditory hallucinations, No Visual hallucinations Attention Span Ability: Capable of Focused Attention Memory Description: Grossly Intact Patient Reliability: Reliable Historian Fund of knowledge: Yes abstraction ability, Yes aware of current events Intelligence Estimate: Below Average Judgment: Limited Insight: Partial Hospital Course Hospital course: Ms. Chavarria is a 28 year old female who was admitted secondary to SI. Familiar to staff here. Tends to come into the hospital when not getting enough attention at home. Lower functioning. Told this comic book writer she doesn't want to go home today. However, verbalizing readiness for discharge to staff last night. Sleeping and eating well. Social on unit. Denying SI. Also denies SI to this comic book writer today. Discussed coping skills and ways to cope when she gets frustrated at home. A partial hospitalization program has been recommended to her multiple times but she never follows through. Likes being in the hospital. No evidence of a thought disorder. Denies SI/HI. Appropriate on unit. No acting out or behavioral concerns in the hospital. Will plan for discharge today. - Time Spent with Patient Total time spent providing and/or coordinating discharge services: Assessment and Plan - Patient/Caregiver Discharge Instructions Activity: resume usual activities as tolerated Diet: low fat, low cholesterol - Follow up Plan Follow up with: [facility] [Outside] - 04/01/18 12:30 pm (The above appointment is with Alix Gupta for outpatient mental luan counseling and case management services. You will also see Yamila Delgado for outpatient psychiatric assessment and medication management services on 05/13/2018 at 9:40 AM.) Functional capacity at discharge: independent ambulation Overall status at discharge: Stable Disposition: Home, Self-Care Quality - Multiple Antipsychotics Patient discharged on 2 or more antipsychotic medications: No Procedures - Procedures Procedures: Medication Management, Crisis Stabilization, Supportive Therapy, Group Therapy
== END 2018-03-21 12:40 | disposition home or self-care (01) | DRG 751 ==
LOC: EMEROOARM 15:39 → 1ANU 20:00
PROVIDERS: ADMIT Psychiatry & Neurology Psychiatry; ATTEND Psychiatry & Neurology Psychiatry

== ENCOUNTER 2019-06-16 15:58 | Inpatient (IN) ==
[2019-06-16 16:53] LABS: Bilirubin,Urine Negative (Negative); Blood,Urine Negative (Negative); Clarity,Urine Clear (Clear); Color,Urine Yellow (Yellow); Glucose,Urine (UA) Normal (Normal); Ketones,Urine Negative (Negative); Leukocyte Esterase,Urine Negative (Negative); Nitrite,Urine Negative (Negative); Protein,Urine Negative (Neg-Trace); Urobilinogen,Urine Normal (Normal)
[2019-06-16 17:14] LABS: Amphetamine Screen,Urine Negative ng/mL (Cutoff=1000); Barbiturate Screen,Urine Negative ng/mL (Cutoff=200); Benzodiazepines Screen,Urine Negative ng/mL (Cutoff=200); Cannabinoid Screen,Urine Negative ng/mL (Cutoff = 50); Cocaine Screen,Urine Negative ng/mL (Cutoff= 300); Opiate Screen,Urine Negative ng/mL (Cutoff=300); Phencyclidine Screen,Urine Negative ng/mL (Cutoff=25)
[2019-06-16 17:29] LABS: Basophils % 0.2 %; Eosinophils # 0.1 K/mcL (0.0-0.6); Eosinophils % 0.9 %; Hematocrit 38.4 % (35.3-44.9); Hemoglobin 12.5 g/dL (11.5-15.4); Immature Granulocytes % 0.3 % (0-4); Lymphocytes # 1.6 K/mcL (0.6-4.6); Lymphocytes % 24.3 %; Mean Corpuscular HGB Conc 32.6 g/dL (31.6-35.5); Mean Corpuscular Hemoglobin 29.6 pg (28.0-33.3); Mean Corpuscular Volume 90.8 fL (83.0-100.0); Mean Platelet Volume 9.4 fL (9.4-12.4); Monocytes # 0.5 K/mcL (0.0-1.3); Neutrophils # 4.4 K/mcL (1.6-8.9); Platelet Count 226 K/mcL (140-400); Red Blood Count 4.23 M/mcL (3.82-4.97); Red Cell Distribution Width 14.8 % (11.5-14.5); Segmented Neutrophils % 67.3 %; White Blood Count 6.6 K/mcL (4.3-11.1)
[2019-06-16 17:39] LABS: Acetaminophen < 10 mcg/mL (10-20); BUN/Creatinine Ratio 11 (6-26); Blood Urea Nitrogen 8 mg/dL (6-20); Calcium 9.2 mg/dL (8.6-10.3); Carbon Dioxide 26 mEq/L (23-29); Chloride 101 mEq/L (98-107); Ethanol < 10 mg/dL (Less than 10); Glucose 140 mg/dL (70-105); Osmolality,Calculated 283 (280-300); Salicylate < 2.5 mg/dL (15.0-30.0); Sodium 136 mEq/L (136-145); eGFR For African Americans > 60 (> 60); eGFR For Non-African Americans > 60 (> 60)
[2019-06-16] MEDS ORDERED: MOM Conc 10 ML UD.LIQ PO PRN (20:40)
[2019-06-16] MEDS ORDERED: *HR* LORazepam 1 MG TABLET PO PRN (20:40)
[2019-06-16] MEDS ORDERED: *HR* LORazepam 2 MG/ML VIAL IM PRN (20:40)
[2019-06-16] MEDS ORDERED: Acetaminophen 325 MG TABLET PO PRN (20:40)
[2019-06-16] MEDS ORDERED: Mag Hydrox/Al Hydrox/Simeth 30 ML UDC PO PRN (20:40)
[2019-06-16] MEDS ORDERED: Haloperidol Lactate 5 MG/ML VIAL IM PRN (20:40)
[2019-06-16] MEDS: Fluticasone Propionate Nasal 50 MCG/SPRAY BOTTLE NS SCH (22:43)
[2019-06-16] MEDS: FLUoxetine 20 MG CAPSULE PO SCH (22:47)
[2019-06-16] MEDS: hydrOXYzine pamoate 25 MG CAPSULE PO PRN (23:01)
[2019-06-17] MEDS: FLUoxetine 20 MG CAPSULE PO SCH (08:28)
[2019-06-17] MEDS ORDERED: XULANE TP SCH (09:00)
[2019-06-17] MEDS: Nystatin Cream 15 GM TUBE TP SCH ×2 (10:33→21:02)
[2019-06-17] MEDS: Ammonium Lactate 30 APPL/225 GM BOTTLE TP SCH ×2 (10:34→21:02)
[2019-06-17] MEDS: Fluticasone Propionate Nasal 50 MCG/SPRAY BOTTLE NS SCH (10:34)
[2019-06-17] MEDS: hydrOXYzine pamoate 25 MG CAPSULE PO PRN (21:03)
[2019-06-18] MEDS: FLUoxetine 20 MG CAPSULE PO SCH (09:04)
[2019-06-18] MEDS: Fluticasone Propionate Nasal 50 MCG/SPRAY BOTTLE NS SCH (09:06)
[2019-06-18] MEDS: Ammonium Lactate 30 APPL/225 GM BOTTLE TP SCH ×2 (09:39→21:47)
[2019-06-18] MEDS: Nystatin Cream 15 GM TUBE TP SCH ×2 (09:40→21:48)
[2019-06-18] MEDS: hydrOXYzine pamoate 25 MG CAPSULE PO PRN (21:49)
[2019-06-19] MEDS: Nystatin Cream 15 GM TUBE TP SCH ×2 (10:20→22:10)
[2019-06-19] MEDS: FLUoxetine 20 MG CAPSULE PO SCH (10:20)
[2019-06-19] MEDS: Fluticasone Propionate Nasal 50 MCG/SPRAY BOTTLE NS SCH (10:20)
[2019-06-19] MEDS: Ammonium Lactate 30 APPL/225 GM BOTTLE TP SCH ×2 (10:22→22:10)
[2019-06-19] MEDS: hydrOXYzine pamoate 25 MG CAPSULE PO PRN (22:09)
[2019-06-20] MEDS: FLUoxetine 20 MG CAPSULE PO SCH (08:41)
[2019-06-20] MEDS: Fluticasone Propionate Nasal 50 MCG/SPRAY BOTTLE NS SCH (08:42)
[2019-06-20 09:01] VITALS: BP 114/75
[2019-06-20] MEDS: Ammonium Lactate 30 APPL/225 GM BOTTLE TP SCH (11:09)
[2019-06-20] MEDS: Nystatin Cream 15 GM TUBE TP SCH (11:10)
== END 2019-06-20 13:00 | disposition home or self-care (01) | DRG 751 ==
LOC: EMEROOARM 15:58 → 1ANU 20:28
PROVIDERS: ADMIT Psychiatry & Neurology Forensic Psychiatry; ATTEND Psychiatry & Neurology Forensic Psychiatry

== ENCOUNTER 2019-09-21 15:13 | Inpatient (IN) ==
[2019-09-21 15:44] LABS: Bilirubin,Urine Negative (Negative); Blood,Urine Trace (Negative); Color,Urine Yellow (Yellow); Glucose,Urine (UA) Normal (Normal); Ketones,Urine Negative (Negative); Leukocyte Esterase,Urine Small (Negative); Nitrite,Urine Negative (Negative); Protein,Urine Negative (Neg-Trace); Specific Gravity,Urine 1.022 (1.010-1.025); Urobilinogen,Urine Normal (Normal)
[2019-09-21 15:46] LABS: Clarity,Urine Slightly Cloudy (Clear)
[2019-09-21 15:50] LABS: Hyaline Casts,Urine None Seen per lpf (None-Few); Squamous Epithelial Cell,Urine Many per lpf (None-Few)
[2019-09-21 16:11] LABS: Basophils % 0.1 %; Eosinophils # 0.1 K/mcL (0.0-0.6); Eosinophils % 0.8 %; Hematocrit 39.9 % (35.3-44.9); Hemoglobin 12.8 g/dL (11.5-15.4); Immature Granulocytes % 0.3 % (0-4); Lymphocytes # 1.4 K/mcL (0.6-4.6); Lymphocytes % 19.9 %; Mean Corpuscular HGB Conc 32.1 g/dL (31.6-35.5); Mean Corpuscular Hemoglobin 29.1 pg (28.0-33.3); Mean Corpuscular Volume 90.7 fL (83.0-100.0); Mean Platelet Volume 9.8 fL (9.4-12.4); Monocytes # 0.5 K/mcL (0.0-1.3); Neutrophils # 5.1 K/mcL (1.6-8.9); Platelet Count 262 K/mcL (140-400); Red Cell Distribution Width 14.6 % (11.5-14.5); Segmented Neutrophils % 71.9 %; White Blood Count 7.1 K/mcL (4.3-11.1)
[2019-09-21 16:23] LABS: Acetaminophen < 10 mcg/mL (10-20); Alanine Aminotransferase 16 Units/L (7-52); Albumin 4.1 g/dL (3.5-5.7); Albumin/Globulin Ratio 1.5 (1.1-2.2); Alkaline Phosphatase 61 Units/L (34-104); Aspartate Amino Transferase 13 Units/L (13-39); BUN/Creatinine Ratio 19 (6-26); Bilirubin,Direct 0.1 mg/dL (0.0-0.2); Bilirubin,Indirect 0.2 mg/dL (0.0-1.0); Bilirubin,Total 0.3 mg/dL (0.3-1.0); Blood Urea Nitrogen 13 mg/dL (6-20); Calcium 9.5 mg/dL (8.6-10.3); Carbon Dioxide 27 mEq/L (23-29); Chloride 103 mEq/L (98-107); Chol/HDL Ratio 5.6 (0-4.9); Cholesterol 184 mg/dL (< 200); Ethanol < 10 mg/dL (Less than 10); Globulin 2.8 g/dL (2.4-3.5); Glucose 104 mg/dL (70-105); HDL Cholesterol 33 mg/dL (40-59); Osmolality,Calculated 288 (280-300); Salicylate < 2.5 mg/dL (15.0-30.0); Sodium 139 mEq/L (136-145); Total Protein 6.9 g/dL (6.4-8.9); Triglycerides 417 mg/dL (< 150); eGFR For African Americans > 60 (> 60); eGFR For Non-African Americans > 60 (> 60)
[2019-09-21 16:35] LABS: Thyroid Stimulating Hormone 0.503 mcIU/mL (0.340-5.600)
[2019-09-21 16:50] LABS: Amphetamine Screen,Urine Negative ng/mL (Cutoff=1000); Barbiturate Screen,Urine Positive ng/mL (Cutoff=200); Benzodiazepines Screen,Urine Negative ng/mL (Cutoff=200); Cannabinoid Screen,Urine Negative ng/mL (Cutoff = 50); Cocaine Screen,Urine Negative ng/mL (Cutoff= 300); Opiate Screen,Urine Negative ng/mL (Cutoff=300); Phencyclidine Screen,Urine Negative ng/mL (Cutoff=25)
[2019-09-21 17:02] LABS: Estimated Average Glucose 128 mg/dl
[2019-09-21] MEDS ORDERED: MOM Conc 10 ML UD.LIQ PO PRN (19:08)
[2019-09-21] MEDS ORDERED: Acetaminophen 325 MG TABLET PO PRN (19:08)
[2019-09-21] MEDS ORDERED: *HR* LORazepam 1 MG TABLET PO PRN (19:08)
[2019-09-21] MEDS ORDERED: Haloperidol Lactate 5 MG/ML VIAL IM PRN (19:08)
[2019-09-21] MEDS ORDERED: Mag Hydrox/Al Hydrox/Simeth 30 ML UDC PO PRN (19:08)
[2019-09-21] MEDS ORDERED: haloperidoL 5 MG TABLET PO PRN (19:08)
[2019-09-21] MEDS ORDERED: *HR* LORazepam 2 MG/ML VIAL IM PRN (19:08)
[2019-09-21] MEDS: traZODone 50 MG TABLET PO PRN (21:11)
[2019-09-21] MEDS: hydrOXYzine pamoate 25 MG CAPSULE PO PRN (21:11)
[2019-09-21] MEDS: Nystatin Cream 15 GM TUBE TP SCH (22:16)
[2019-09-22] MEDS: Nystatin Cream 15 GM TUBE TP SCH ×2 (08:39→21:05)
[2019-09-22] MEDS ORDERED: FLUoxetine 20 MG CAPSULE PO SCH (09:00)
[2019-09-22] MEDS: Fluticasone Propionate Nasal 50 MCG/SPRAY BOTTLE NS SCH (11:02)
[2019-09-22] MEDS: *HR* Metformin 500 MG TABLET PO SCH (16:54)
[2019-09-22] MEDS: hydrOXYzine pamoate 25 MG CAPSULE PO PRN (21:04)
[2019-09-22] MEDS: traZODone 50 MG TABLET PO PRN (21:04)
[2019-09-23 08:09] LABS: Bacteria,Urine Few per hpf (None-Few)
[2019-09-23] MEDS: FLUoxetine 20 MG CAPSULE PO SCH (08:11)
[2019-09-23] MEDS: *HR* Metformin 500 MG TABLET PO SCH ×2 (08:11→17:52)
[2019-09-23] MEDS: Fluticasone Propionate Nasal 50 MCG/SPRAY BOTTLE NS SCH (08:13)
[2019-09-23] MEDS: Nystatin Cream 15 GM TUBE TP SCH ×2 (08:13→20:25)
[2019-09-23] MEDS: traZODone 50 MG TABLET PO PRN (20:25)
[2019-09-23] MEDS: hydrOXYzine pamoate 25 MG CAPSULE PO PRN (20:25)
[2019-09-24] MEDS: *HR* Metformin 500 MG TABLET PO SCH (08:35)
[2019-09-24] MEDS: FLUoxetine 20 MG CAPSULE PO SCH (08:35)
[2019-09-24] MEDS: Fluticasone Propionate Nasal 50 MCG/SPRAY BOTTLE NS SCH (08:36)
[2019-09-24] MEDS: Nystatin Cream 15 GM TUBE TP SCH (10:33)
[2019-09-24 12:04] VITALS: BP 101/74
== END 2019-09-24 11:15 | disposition home or self-care (01) | DRG 751 ==
LOC: EMEROOARM 15:13 → 1ANU 18:52
PROVIDERS: ADMIT Psychiatry & Neurology Psychiatry; ATTEND Psychiatry & Neurology Psychiatry

== ENCOUNTER 2019-10-19 14:24 | Inpatient (IN) ==
[2019-10-19 15:02] LABS: Basophils % 0.2 %; Eosinophils # 0.1 K/mcL (0.0-0.6); Hematocrit 39.1 % (35.3-44.9); Hemoglobin 12.3 g/dL (11.5-15.4); Immature Granulocytes % 0.3 % (0-4); Lymphocytes # 1.6 K/mcL (0.6-4.6); Lymphocytes % 25.7 %; Mean Corpuscular HGB Conc 31.5 g/dL (31.6-35.5); Mean Corpuscular Hemoglobin 28.9 pg (28.0-33.3); Mean Corpuscular Volume 91.8 fL (83.0-100.0); Mean Platelet Volume 9.3 fL (9.4-12.4); Monocytes # 0.4 K/mcL (0.0-1.3); Monocytes % 6.1 %; Neutrophils # 4.1 K/mcL (1.6-8.9); Platelet Count 232 K/mcL (140-400); Red Blood Count 4.26 M/mcL (3.82-4.97); Red Cell Distribution Width 14.4 % (11.5-14.5); Segmented Neutrophils % 66.7 %; White Blood Count 6.2 K/mcL (4.3-11.1)
[2019-10-19 15:18] LABS: Acetaminophen < 10 mcg/mL (10-20); BUN/Creatinine Ratio 13 (6-26); Blood Urea Nitrogen 11 mg/dL (6-20); Carbon Dioxide 29 mEq/L (23-29); Chloride 104 mEq/L (98-107); Ethanol < 10 mg/dL (Less than 10); Glucose 163 mg/dL (70-105); Osmolality,Calculated 275 (280-300); Potassium 3.9 mEq/L (3.5-5.1); Salicylate < 2.5 mg/dL (15.0-30.0); Sodium 131 mEq/L (136-145); eGFR For African Americans > 60 (> 60); eGFR For Non-African Americans > 60 (> 60)
[2019-10-19 16:08] LABS: Bilirubin,Urine Negative (Negative); Blood,Urine Small (Negative); Clarity,Urine Cloudy (Clear); Color,Urine Yellow (Yellow); Glucose,Urine (UA) Normal (Normal); Ketones,Urine Negative (Negative); Leukocyte Esterase,Urine Negative (Negative); Nitrite,Urine Negative (Negative); Protein,Urine Negative (Neg-Trace); Specific Gravity,Urine 1.023 (1.010-1.025); Urobilinogen,Urine Normal (Normal)
[2019-10-19 16:11] LABS: Bacteria,Urine Few per hpf (None-Few); Hyaline Casts,Urine None Seen per lpf (None-Few); Squamous Epithelial Cell,Urine Many per lpf (None-Few)
[2019-10-19 16:12] LABS: Amphetamine Screen,Urine Negative ng/mL (Cutoff=1000); Barbiturate Screen,Urine Negative ng/mL (Cutoff=200); Benzodiazepines Screen,Urine Negative ng/mL (Cutoff=200); Cannabinoid Screen,Urine Negative ng/mL (Cutoff = 50); Cocaine Screen,Urine Negative ng/mL (Cutoff= 300); Opiate Screen,Urine Negative ng/mL (Cutoff=300); Phencyclidine Screen,Urine Negative ng/mL (Cutoff=25)
[2019-10-19] MEDS ORDERED: haloperidoL 5 MG TABLET PO PRN (17:12)
[2019-10-19] MEDS ORDERED: Mag Hydrox/Al Hydrox/Simeth 30 ML UDC PO PRN (17:12)
[2019-10-19] MEDS ORDERED: Ibuprofen 400 MG TABLET PO PRN (17:12)
[2019-10-19] MEDS ORDERED: *HR* LORazepam 2 MG/ML VIAL IM PRN (17:12)
[2019-10-19] MEDS ORDERED: *HR* LORazepam 1 MG TABLET PO PRN (17:12)
[2019-10-19] MEDS ORDERED: Haloperidol Lactate 5 MG/ML VIAL IM PRN (17:12)
[2019-10-19] MEDS ORDERED: MOM Conc 10 ML UD.LIQ PO PRN (17:12)
[2019-10-19] MEDS: hydrOXYzine pamoate 25 MG CAPSULE PO PRN (21:01)
[2019-10-19] MEDS: traZODone 50 MG TABLET PO PRN (21:01)
[2019-10-20] MEDS: Nystatin Cream 15 GM TUBE TP SCH ×2 (13:05→20:33)
[2019-10-20] MEDS: FLUoxetine 20 MG CAPSULE PO SCH (13:05)
[2019-10-20] MEDS: *HR* Metformin 500 MG TABLET PO SCH (16:40)
[2019-10-20] MEDS: traZODone 50 MG TABLET PO PRN (20:31)
[2019-10-20] MEDS: hydrOXYzine pamoate 25 MG CAPSULE PO PRN (20:31)
[2019-10-21] MEDS: FLUoxetine 20 MG CAPSULE PO SCH (08:13)
[2019-10-21] MEDS: *HR* Metformin 500 MG TABLET PO SCH ×2 (08:13→16:36)
[2019-10-21] MEDS: Nystatin Cream 15 GM TUBE TP SCH ×2 (08:14→21:13)
[2019-10-21] MEDS: traZODone 50 MG TABLET PO PRN (21:12)
[2019-10-21] MEDS: hydrOXYzine pamoate 25 MG CAPSULE PO PRN (21:13)
[2019-10-22] MEDS: FLUoxetine 20 MG CAPSULE PO SCH (08:41)
[2019-10-22] MEDS: *HR* Metformin 500 MG TABLET PO SCH ×2 (08:41→16:41)
[2019-10-22] MEDS: Nystatin Cream 15 GM TUBE TP SCH ×2 (08:42→21:03)
[2019-10-22] MEDS ORDERED: Lurasidone 20 MG TABLET PO SCH (17:00)
[2019-10-22] MEDS: traZODone 50 MG TABLET PO PRN (20:52)
[2019-10-22] MEDS: hydrOXYzine pamoate 25 MG CAPSULE PO PRN (20:52)
[2019-10-23] MEDS: *HR* Metformin 500 MG TABLET PO SCH (08:49)
[2019-10-23] MEDS: FLUoxetine 20 MG CAPSULE PO SCH (08:49)
[2019-10-23] MEDS: Nystatin Cream 15 GM TUBE TP SCH (08:50)
[2019-10-23 09:15] VITALS: BP 90/52
== END 2019-10-23 09:50 | disposition home or self-care (01) | DRG 751 ==
LOC: EMEROOARM 14:24 → 1ANU 16:28
PROVIDERS: ADMIT Psychiatry & Neurology Psychiatry; ATTEND Psychiatry & Neurology Psychiatry